=== PATIENT | female | born 1990 | race Caucasian/White ===

== ENCOUNTER 2016-02-24 03:38 | Emergency (ER) | payer OTHER ==
[~2016-02-24] VITALS: Ht 157.5 cm; Wt 94.1 kg
[~2016-02-24 03:38] MED LIST: ACETAMINOPHEN500 MG PO; ADVIL200 MG PO; ALEVE220 M2 PO; ATARAX,VISTARIL25 MG PO; ATIVAN0.5 MG PO; ATIVAN1 MG PO; BACLOFEN10 MG PO; BACTRIM,SEPT1 TABLET PO; BUSPAR10 MG PO; CATAPRES0.1 MG PO; CIPRO500 MG PO; CLEOCIN300 MG; CLEOCIN300 MG PO; CYMBALTA20 MG PO; CYMBALTA30 MG PO; DILAUDID2 MG PO; DOXYCYCLINE HY100 MG; HYDROCODON-ACE1 EAC7 PO; IBUPROFEN200 M1 PO; IBUPROFEN800 MG; LIBRIUM25 MG PO; LIDOCAINE20 MG/1 M5 PO; LORAZEPAM0.5 MG; LORAZEPAM0.5 MG PO; LORAZEPAM1 MG PO; MACROBID100 MG PO; MOTRIN400 MG PO; MOTRIN600 MG PO; MOTRIN800 MG PO; NAPROSYN500 MG PO; NEXIUM20 MG PO; NICODERM CQ1 EAC1 TD; OMEPRAZOLE40 M1 PO; PEN-VEE K,VEET500 MG PO; PERCOCET 5/31 TABLET PO; SERTRALINE HCL50 MG; SERTRALINE HCL50 MG PO; TRAMADOL HCL50 MG PO; TRAZODONE HCL50 MG PO; ULTRAM50 MG PO; VENTOLIN HFA18 GM IH; ZOFRAN4 MG PO; ZOLOFT PO
[2016-02-24 03:46] VITALS: BP 145/92
== END 2016-02-24 05:05 | disposition left against medical advice (07) ==
LOC: EME 03:38
DX: R10.9 Unspecified abdominal pain (principal); Z53.21 Procedure and treatment not carried out due to patient leaving prior to being seen by health care provider; R11.2 Nausea with vomiting, unspecified; J45.909 Unspecified asthma, uncomplicated; I10 Essential (primary) hypertension; Z87.442 Personal history of urinary calculi
CPT/HCPCS: 80053; 81003; 83690; 84702; 85027

== ENCOUNTER 2016-06-15 23:45 | Emergency (ER) | payer OTHER ==
[~2016-06-15] VITALS: Ht 157.5 cm; Wt 96.7 kg
[2016-06-16 00:23] LABS: BILIRUBIN NEGATIVE; BLOOD NEGATIVE; COLOR YELLOW ((YELLOW)); GLUCOSE (STRIP) NEGATIVE; KETONES NEGATIVE; LEUKOCYTES NEGATIVE; NITRITE NEGATIVE; PROTEIN (STRIP) NEGATIVE; SPECIFIC GRAVITY 1.017 (1.000-1.030); UROBILINOGEN 0.2 MG/DL (0.2-1.0)
[2016-06-16 00:26] LABS: ADD MIUA? NO; UCUL ADDED? NO
[2016-06-16 00:33] LABS: HEMATOCRIT 42.3 % (36.0-46.0); MCH 28.3 PG (29.0-34.0); MCHC 33.6 G/DL (30.0-36.0); MCV 84.4 FL (83-99); MEAN PLAT.VOLUME 9.3 uM^3 (9.5-12.4); PLATELET COUNT 530 K/uL (156-360); RBC DIS.WIDTH-CV 13.7 % (11.8-14.6); RBC DIS.WIDTH-SD 42.1 % (39-53); RED BLOOD COUNT 5.01 M/uL (3.80-5.20); WHITE BLOOD COUNT 12.3 K/uL (4.1-10.2)
[2016-06-16 00:43] LABS: CHLORIDE 106 mEq/L (99-109); SODIUM 140 mEq/L (136-147)
[2016-06-16 00:45] LABS: GLUCOSE 118 mg/dL (70-99)
[2016-06-16 00:47] LABS: ANION GAP 14 MEQ/L (2-14); TOTAL BILIRUBIN 0.3 mg/dL (0.0-1.0)
[2016-06-16 00:49] LABS: ALKALINE PHOSPHATASE 99 IU/L (3-129); GFR ESTIMATE (CALCULATED) 57 mL/min/
[2016-06-16 00:50] LABS: UREA NITROGEN (BUN) 12 mg/dL (9-23)
[2016-06-16 00:52] LABS: LIPASE 54 U/L (1.0-51.0)
[2016-06-16 01:00] LABS: QUANTITATIVE HCG < 4.0 MIU/ML
[2016-06-16 03:06] LABS: D-DIMER ELISA 0.64 mg/L FEU (< 0.57)
[2016-06-16] MEDS ORDERED: CARAFATE100 MG/ML PO (04:39)
[2016-06-16] MEDS ORDERED: ZOFRAN4 MG PO (04:39)
[2016-06-16 04:54] VITALS: BP 143/92
[2016-06-16] MEDS ORDERED: BENTYL20 MG PO (11:48)
[2016-06-16] MEDS ORDERED: PREDNISONE50 MG PO (11:48)
== END 2016-06-16 04:55 | disposition home or self-care (01) ==
LOC: EME 23:45
DX: R10.11 Right upper quadrant pain (principal); R11.0 Nausea; I10 Essential (primary) hypertension; J45.909 Unspecified asthma, uncomplicated; F32.9 Major depressive disorder, single episode, unspecified; R56.9 Unspecified convulsions; F41.9 Anxiety disorder, unspecified; Z87.442 Personal history of urinary calculi; F17.200 Nicotine dependence, unspecified, uncomplicated
CPT/HCPCS: 71275; 74177; 76705; 80053; 81003; 83690; 84702; 85027; 85379; 99281; 99285; J1200; J1885; J2270; J2405; J2930; J7030

== ENCOUNTER 2016-06-16 09:20 | Emergency (ER) | payer OTHER ==
[~2016-06-16] VITALS: Ht 157.5 cm; Wt 96.9 kg
[~2016-06-16 09:20] MED LIST changes: +CARAFATE100 MG/ML PO
[2016-06-16 10:16] LABS: EOSINOPHIL (%) 0.1 % (0-5); HEMATOCRIT 43.3 % (36.0-46.0); IMMATURE GRANULOCYTE (%) 0.4 % (0.0-0.7); IMMATURE GRANULOCYTE COUNT 0.1 K/uL; INSTRUMENT ABS NEUTROPHIL CT 13.9 K/uL; LYMPHOCYTE COUNT 0.9 K/uL (1.0-2.8); MCH 28.3 PG (29.0-34.0); MCHC 33.3 G/DL (30.0-36.0); MCV 85.1 FL (83-99); MEAN PLAT.VOLUME 9.4 uM^3 (9.5-12.4); MONOCYTE (%) 5.1 % (3-12); MONOCYTE COUNT 0.8 K/uL (0-0.8); NEUTROPHIL (%) 88.5 % (45-76); NEUTROPHIL COUNT 13.9 K/uL (1.8-6.4); PLATELET COUNT 504 K/uL (156-360); RBC DIS.WIDTH-CV 13.5 % (11.8-14.6); RBC DIS.WIDTH-SD 42.5 % (39-53); RED BLOOD COUNT 5.09 M/uL (3.80-5.20); WHITE BLOOD COUNT 15.8 K/uL (4.1-10.2)
[2016-06-16 10:26] LABS: CHLORIDE 107 mEq/L (99-109); POTASSIUM 4.5 mEq/L (3.7-5.4); SODIUM 138 mEq/L (136-147)
[2016-06-16 10:29] LABS: GLUCOSE 124 mg/dL (70-99)
[2016-06-16 10:30] LABS: ANION GAP 13 MEQ/L (2-14)
[2016-06-16 10:32] LABS: ALKALINE PHOSPHATASE 93 IU/L (3-129); GFR ESTIMATE (CALCULATED) > 59 mL/min/; TOTAL BILIRUBIN 0.6 mg/dL (0.0-1.0)
[2016-06-16 10:33] LABS: UREA NITROGEN (BUN) 16 mg/dL (9-23)
[2016-06-16 10:36] LABS: LIPASE 33 U/L (1.0-51.0)
[2016-06-16] MEDS ORDERED: BENTYL20 MG PO (11:48)
[2016-06-16] MEDS ORDERED: PREDNISONE50 MG PO (11:48)
[2016-06-16 12:27] VITALS: BP 143/87
== END 2016-06-16 12:29 | disposition home or self-care (01) ==
LOC: EME 09:20
PROVIDERS: Emergency Medicine
DX: R10.11 Right upper quadrant pain (principal); R21 Rash and other nonspecific skin eruption; T50.8X5A Adverse effect of diagnostic agents, initial encounter; D72.829 Elevated white blood cell count, unspecified; I10 Essential (primary) hypertension; F17.200 Nicotine dependence, unspecified, uncomplicated; Z87.442 Personal history of urinary calculi; Z91.041 Radiographic dye allergy status
CPT/HCPCS: 80053; 83690; 85025; 99281; 99285; J1885; J2405; J2930; J7030

== ENCOUNTER 2016-07-16 02:26 | Inpatient (IN) | payer OTHER ==
[~2016-07-16] VITALS: Ht 157.5 cm; Wt 96.5 kg
[~2016-07-16 02:26] MED LIST changes: +BENTYL20 MG PO; +PREDNISONE50 MG PO
[2016-07-16 02:58] LABS: HEMATOCRIT 42.5 % (36.0-46.0); MCH 28.2 PG (29.0-34.0); MCHC 33.4 G/DL (30.0-36.0); MCV 84.5 FL (83-99); MEAN PLAT.VOLUME 9.2 uM^3 (9.5-12.4); PLATELET COUNT 449 K/uL (156-360); RBC DIS.WIDTH-CV 13.5 % (11.8-14.6); RBC DIS.WIDTH-SD 41.6 % (39-53); RED BLOOD COUNT 5.03 M/uL (3.80-5.20); WHITE BLOOD COUNT 12.2 K/uL (4.1-10.2)
[2016-07-16 03:09] LABS: CHLORIDE 107 mEq/L (99-109); POTASSIUM 3.3 mEq/L (3.7-5.4); SODIUM 146 mEq/L (136-147)
[2016-07-16 03:11] LABS: GLUCOSE 107 mg/dL (70-99)
[2016-07-16 03:12] LABS: ANION GAP 15 MEQ/L (2-14)
[2016-07-16 03:14] LABS: SERUM ETHYL ALCOHOL 179 mg/dL
[2016-07-16 03:15] LABS: GFR ESTIMATE (CALCULATED) > 59 mL/min/
[2016-07-16 03:16] LABS: UREA NITROGEN (BUN) 8 mg/dL (9-23)
[2016-07-16 03:18] LABS: SALICYLATE < 5.0 MG/DL (15-30)
[2016-07-16 03:23] LABS: QUANTITATIVE HCG < 4.0 MIU/ML
[2016-07-16 07:57] LABS: MCH 28.4 PG (29.0-34.0); MCHC 33.1 G/DL (30.0-36.0); MCV 85.6 FL (83-99); MEAN PLAT.VOLUME 9.7 uM^3 (9.5-12.4); PLATELET COUNT 402 K/uL (156-360); RBC DIS.WIDTH-CV 13.6 % (11.8-14.6); RBC DIS.WIDTH-SD 42.4 % (39-53); RED BLOOD COUNT 4.09 M/uL (3.80-5.20); WHITE BLOOD COUNT 15.7 K/uL (4.1-10.2)
[2016-07-16 09:27] LABS: ADD MIUA? YES; BILIRUBIN NEGATIVE; BLOOD NEGATIVE; COLOR YELLOW ((YELLOW)); GLUCOSE (STRIP) NEGATIVE; KETONES 20; LEUKOCYTES SMALL; NITRITE NEGATIVE; PROTEIN (STRIP) NEGATIVE; UROBILINOGEN 0.2 MG/DL (0.2-1.0)
[2016-07-16 09:33] LABS: BACTERIA NONE SEEN /HPF; EPITHELIAL CELLS RARE /HPF; MUCUS TRACE /LPF; UCUL ADDED? NO; WHITE BLOOD CELLS 0-5 /HPF (0-5)
[2016-07-16 09:35] LABS: AMPHETAMINE NEGATIVE (500 ng/mL); BARBITURATES NEGATIVE (200 ng/mL); BENZODIAZEPINES PRESUMPTIVE POSITIVE (150 ng/mL); COCAINE PRESUMPTIVE POSITIVE (150 ng/mL); INTERNAL CONTROLS VALID? YES; METHADONE NEGATIVE (200 ng/mL); METHAMPHETAMINE NEGATIVE (500 ng/mL); OPIATES (MORPHINE) PRESUMPTIVE POSITIVE (100 ng/mL); OXYCODONE NEGATIVE (100 ng/mL); PHENCYCLIDINE NEGATIVE (25 ng/mL); PROPOXYPHENE NEGATIVE (300 ng/mL); THC CANNABINOIDS NEGATIVE (50 ng/mL); TRICYCLIC ANTIDEPRESSANTS NEGATIVE (300 ng/mL)
[2016-07-16 09:36] LABS: ADD MEDTOX COMMENT Y
[2016-07-16 09:42] LABS: SPECIFIC GRAVITY 1.076 (1.000-1.030)
[2016-07-16 11:00] LABS: BENZODIAZEPINES QUANT VALUE 0 NG/ML; BENZODIAZEPINES, URINE SCREEN Negative (200 ng/mL)
[2016-07-16] MEDS ORDERED: DESYREL100 MG PO (11:27)
[2016-07-16] MEDS ORDERED: OMEPRAZOLE40 M1 PO (11:28)
[2016-07-16] MEDS ORDERED: PAXIL20 MG PO (11:28)
[2016-07-16] MEDS ORDERED: TOPROL XL25 MG PO (11:29)
[2016-07-16] MEDS ORDERED: ADVIL,NUPRIN,M200 MG PO (11:30)
[2016-07-16] MEDS ORDERED: CIPRO500 MG PO (11:32)
[2016-07-16 11:53] VITALS: BP 148/72
[2016-07-16 12:07] VITALS: BP 148/72
[2016-07-16 15:19] VITALS: BP 131/61
[2016-07-17 07:44] VITALS: BP 134/68
[2016-07-17 15:45] VITALS: BP 117/55
[2016-07-18 07:58] VITALS: BP 127/60
[2016-07-18 16:00] VITALS: BP 106/50
[2016-07-19 07:36] VITALS: BP 98/57
[2016-07-19 15:15] VITALS: BP 105/51
[2016-07-20 07:43] VITALS: BP 118/58
[2016-07-20 15:46] VITALS: BP 113/49
[2016-07-21 07:37] VITALS: BP 114/58
[2016-07-21 14:58] VITALS: BP 109/52
[2016-07-22 07:22] VITALS: BP 105/54
[2016-07-22 15:29] VITALS: BP 115/66
[2016-07-23 07:34] VITALS: BP 116/70
[2016-07-23 15:42] VITALS: BP 122/59
[2016-07-24 07:25] VITALS: BP 111/58
[2016-07-24 15:28] VITALS: BP 114/55
[2016-07-25 07:39] VITALS: BP 112/67
[2016-07-25] MEDS ORDERED: VENLAFAXINE HC150 M1 PO (09:22)
[2016-07-25] MEDS ORDERED: QUETIAPINE FUM100 MG PO (09:22)
== END 2016-07-25 11:19 | disposition home or self-care (01) | DRG 876 ==
LOC: EME → TRA 02:26 → EME 02:26 → EDOF 09:01 → 1WEST 09:01 → EDOF 11:22 → 1WEST 11:24
PROVIDERS: Emergency Medicine
DX: F32.2 Major depressive disorder, single episode, severe without psychotic features (principal); S15.8XXA Injury of other specified blood vessels at neck level, initial encounter; I10 Essential (primary) hypertension; F14.10 Cocaine abuse, uncomplicated; S11.81XA Laceration without foreign body of other specified part of neck, initial encounter; F41.0 Panic disorder [episodic paroxysmal anxiety]; F15.10 Other stimulant abuse, uncomplicated; X78.8XXA Intentional self-harm by other sharp object, initial encounter; Y92.9 Unspecified place or not applicable; F10.229 Alcohol dependence with intoxication, unspecified; Y90.6 Blood alcohol level of 120-199 mg/100 ml; Z87.442 Personal history of urinary calculi; J45.909 Unspecified asthma, uncomplicated; F17.210 Nicotine dependence, cigarettes, uncomplicated; R45.6 Violent behavior; K59.00 Constipation, unspecified; T42.4X2A Poisoning by benzodiazepines, intentional self-harm, initial encounter
CPT/HCPCS: 70498; 80048; 81003; 84702; 84999; 85027; 86900; 86901; 90837; 94640; 94640 76; 94760; 97150 GO; 97165 GO; 97530 GO; 99202; 99281; 99285; G0480; J0690; J1200; J2060; J2270; J2405; J2765; J2930; J3010; J7030

== ENCOUNTER 2016-08-20 03:09 | Inpatient (IN) | payer OTHER ==
[~2016-08-20] VITALS: Ht 157.5 cm; Wt 97.0 kg
[~2016-08-20 03:09] MED LIST changes: +ADVIL,NUPRIN,M200 MG PO; +DESYREL100 MG PO; +PAXIL20 MG PO; +QUETIAPINE FUM100 MG PO; +TOPROL XL25 MG PO; +VENLAFAXINE HC150 M1 PO
[2016-08-20 04:00] LABS: ADD MIUA? YES; BILIRUBIN NEGATIVE; BLOOD NEGATIVE; COLOR YELLOW ((YELLOW)); GLUCOSE (STRIP) NEGATIVE; KETONES NEGATIVE; LEUKOCYTES LARGE; NITRITE NEGATIVE; PROTEIN (STRIP) NEGATIVE; SPECIFIC GRAVITY 1.008 (1.000-1.030); UROBILINOGEN 0.2 MG/DL (0.2-1.0)
[2016-08-20 04:10] LABS: AMPHETAMINE NEGATIVE (500 ng/mL); BARBITURATES NEGATIVE (200 ng/mL); BENZODIAZEPINES PRESUMPTIVE POSITIVE (150 ng/mL); COCAINE PRESUMPTIVE POSITIVE (150 ng/mL); INTERNAL CONTROLS VALID? YES; METHADONE NEGATIVE (200 ng/mL); METHAMPHETAMINE NEGATIVE (500 ng/mL); OPIATES (MORPHINE) PRESUMPTIVE POSITIVE (100 ng/mL); OXYCODONE NEGATIVE (100 ng/mL); PHENCYCLIDINE NEGATIVE (25 ng/mL); PROPOXYPHENE NEGATIVE (300 ng/mL); THC CANNABINOIDS NEGATIVE (50 ng/mL); TRICYCLIC ANTIDEPRESSANTS PRESUMPTIVE POSITIVE (300 ng/mL)
[2016-08-20 04:11] LABS: ADD MEDTOX COMMENT Y
[2016-08-20 04:19] LABS: EPITHELIAL CELLS 3+ /HPF; RED BLOOD CELLS NONE SEEN /HPF (0-5); WHITE BLOOD CELLS 30-40 /HPF (0-5)
[2016-08-20 04:20] LABS: BACTERIA 2+ /HPF; CASTS NONE SEEN /LPF; CRYSTALS NONE SEEN; MUCUS NONE SEEN /LPF
[2016-08-20 04:44] LABS: HEMATOCRIT 30.3 % (36.0-46.0); MCV 78.1 FL (83-99); MEAN PLAT.VOLUME 8.5 uM^3 (9.5-12.4); PLATELET COUNT 583 K/uL (156-360); RBC DIS.WIDTH-SD 42.3 % (39-53); RED BLOOD COUNT 3.88 M/uL (3.80-5.20); WHITE BLOOD COUNT 11.7 K/uL (4.1-10.2)
[2016-08-20 04:56] LABS: CHLORIDE 108 mEq/L (99-109); POTASSIUM 3.8 mEq/L (3.7-5.4); SODIUM 144 mEq/L (136-147)
[2016-08-20 04:58] LABS: GLUCOSE 147 mg/dL (70-99)
[2016-08-20 04:59] LABS: ANION GAP 12 MEQ/L (2-14)
[2016-08-20 05:00] LABS: TOTAL BILIRUBIN 0.2 mg/dL (0.0-1.0)
[2016-08-20 05:01] LABS: SERUM ETHYL ALCOHOL 173 mg/dL
[2016-08-20 05:02] LABS: ALKALINE PHOSPHATASE 104 IU/L (3-129); GFR ESTIMATE (CALCULATED) > 59 mL/min/
[2016-08-20 05:03] LABS: UREA NITROGEN (BUN) 7 mg/dL (9-23)
[2016-08-20 05:09] LABS: BENZODIAZEPINES QUANT VALUE 0 NG/ML; BENZODIAZEPINES, URINE SCREEN Negative (200 ng/mL); OPIATES QUANTITATIVE VALUE 0 NG/ML
[2016-08-20 05:11] LABS: QUANTITATIVE HCG < 4.0 MIU/ML
[2016-08-20 10:54] VITALS: BP 127/83
[2016-08-20 11:03] VITALS: BP 127/83
[2016-08-20] MEDS ORDERED: SEROQUEL200 MG PO (11:25)
[2016-08-20 16:02] VITALS: BP 119/77
[2016-08-21 07:18] VITALS: BP 109/70
[2016-08-21 15:48] VITALS: BP 116/58
[2016-08-22 07:30] VITALS: BP 142/82
[2016-08-22 15:11] VITALS: BP 131/72
[2016-08-23 07:29] VITALS: BP 132/61
[2016-08-23 15:46] VITALS: BP 135/60
[2016-08-24 07:26] VITALS: BP 125/60
[2016-08-24] MEDS ORDERED: QUETIAPINE FUM300 MG PO (11:18)
[2016-08-24] MEDS ORDERED: ACAMPROSATE CA333 MG PO (11:19)
== END 2016-08-24 13:19 | disposition home or self-care (01) | DRG 885 ==
LOC: EME → EDBD 03:09 → EME 03:09 → EDOF 09:42 → 1WEST 09:42 → EDOF 09:58 → 1WEST 10:46
PROVIDERS: Emergency Medicine
DX: F33.2 Major depressive disorder, recurrent severe without psychotic features (principal); R45.851 Suicidal ideations; R44.0 Auditory hallucinations; S51.812A Laceration without foreign body of left forearm, initial encounter; Y90.6 Blood alcohol level of 120-199 mg/100 ml; X78.8XXA Intentional self-harm by other sharp object, initial encounter; F17.210 Nicotine dependence, cigarettes, uncomplicated; G40.909 Epilepsy, unspecified, not intractable, without status epilepticus; F41.0 Panic disorder [episodic paroxysmal anxiety]; I10 Essential (primary) hypertension; J45.909 Unspecified asthma, uncomplicated; F11.10 Opioid abuse, uncomplicated; F13.10 Sedative, hypnotic or anxiolytic abuse, uncomplicated; R45.1 Restlessness and agitation; F14.10 Cocaine abuse, uncomplicated; Z91.041 Radiographic dye allergy status; Z78.1 Physical restraint status; Z91.5 Personal history of self-harm; Z87.442 Personal history of urinary calculi; Z56.0 Unemployment, unspecified; Y92.9 Unspecified place or not applicable; Z81.1 Family history of alcohol abuse and dependence
CPT/HCPCS: 80053; 81003; 84702; 84999; 85027; 90837; 97150 GO; 97165 GO; 99202; 99281; 99285; G0480; J1630

== ENCOUNTER 2016-09-07 23:05 | Emergency (ER) | payer OTHER ==
[~2016-09-07] VITALS: Ht 157.5 cm; Wt 100.5 kg
[~2016-09-07 23:05] MED LIST changes: +ACAMPROSATE CA333 MG PO; +QUETIAPINE FUM300 MG PO; +SEROQUEL200 MG PO
[2016-09-07 23:47] LABS: HEMATOCRIT 34.8 % (36.0-46.0); MCH 23.6 PG (29.0-34.0); MCHC 30.7 G/DL (30.0-36.0); MCV 76.8 FL (83-99); MEAN PLAT.VOLUME 8.8 uM^3 (9.5-12.4); PLATELET COUNT 586 K/uL (156-360); RBC DIS.WIDTH-CV 16.8 % (11.8-14.6); RED BLOOD COUNT 4.53 M/uL (3.80-5.20); WHITE BLOOD COUNT 13.9 K/uL (4.1-10.2)
[2016-09-07 23:58] LABS: CHLORIDE 107 mEq/L (99-109); POTASSIUM 3.3 mEq/L (3.7-5.4); SODIUM 143 mEq/L (136-147)
[2016-09-07 23:59] LABS: GLUCOSE 113 mg/dL (70-99)
[2016-09-08 00:01] LABS: ANION GAP 15 MEQ/L (2-14)
[2016-09-08 00:04] LABS: GFR ESTIMATE (CALCULATED) > 59 mL/min/; UREA NITROGEN (BUN) 9 mg/dL (9-23)
[2016-09-08 00:07] LABS: ADD MIUA? YES; BILIRUBIN NEGATIVE; BLOOD LARGE; COLOR STRAW ((YELLOW)); GLUCOSE (STRIP) NEGATIVE; KETONES NEGATIVE; LEUKOCYTES NEGATIVE; NITRITE NEGATIVE; PROTEIN (STRIP) NEGATIVE; SPECIFIC GRAVITY 1.003 (1.000-1.030); UROBILINOGEN 0.2 MG/DL (0.2-1.0)
[2016-09-08 00:14] LABS: QUANTITATIVE HCG < 4.0 MIU/ML
[2016-09-08 00:22] LABS: BACTERIA RARE /HPF; EPITHELIAL CELLS RARE /HPF; MUCUS TRACE /LPF; RED BLOOD CELLS 0-5 /HPF (0-5); UCUL ADDED? NO; WHITE BLOOD CELLS 0-5 /HPF (0-5)
[2016-09-08] MEDS ORDERED: ZOFRAN8 MG PO (03:39)
[2016-09-08] MEDS ORDERED: NORCO 5/3251 TABLET PO (03:39)
[2016-09-08 03:55] VITALS: BP 139/87
== END 2016-09-08 03:59 | disposition home or self-care (01) ==
LOC: EXP 23:05 → EME 23:05 → EXP 09-08 03:59
DX: N23 Unspecified renal colic (principal); R31.9 Hematuria, unspecified; E87.6 Hypokalemia; R30.0 Dysuria; R11.0 Nausea; R00.0 Tachycardia, unspecified; Z87.442 Personal history of urinary calculi; I10 Essential (primary) hypertension; J45.909 Unspecified asthma, uncomplicated; F17.200 Nicotine dependence, unspecified, uncomplicated
CPT/HCPCS: 74176; 80048; 81003; 84702; 85027; 99281; 99283

== ENCOUNTER 2016-09-10 00:11 | Inpatient (IN) | payer OTHER ==
[~2016-09-10] VITALS: Ht 157.5 cm; Wt 101.7 kg
[~2016-09-10 00:11] MED LIST changes: +NORCO 5/3251 TABLET PO; +ZOFRAN8 MG PO
[2016-09-10 01:28] LABS: EOSINOPHIL (%) 3.8 % (0-5); EOSINOPHIL COUNT 0.3 K/uL (0-0.3); HEMATOCRIT 31.9 % (36.0-46.0); IMMATURE GRANULOCYTE (%) 0.6 % (0.0-0.7); IMMATURE GRANULOCYTE COUNT 0.1 K/uL; INSTRUMENT ABS NEUTROPHIL CT 4.5 K/uL; LYMPHOCYTE COUNT 3.4 K/uL (1.0-2.8); MCH 23.4 PG (29.0-34.0); MCHC 30.4 G/DL (30.0-36.0); MCV 76.9 FL (83-99); MEAN PLAT.VOLUME 9.2 uM^3 (9.5-12.4); MONOCYTE COUNT 0.5 K/uL (0-0.8); NEUTROPHIL (%) 50.5 % (45-76); NEUTROPHIL COUNT 4.5 K/uL (1.8-6.4); PLATELET COUNT 522 K/uL (156-360); RBC DIS.WIDTH-CV 16.7 % (11.8-14.6); RBC DIS.WIDTH-SD 46.6 % (39-53); RED BLOOD COUNT 4.15 M/uL (3.80-5.20); WHITE BLOOD COUNT 8.9 K/uL (4.1-10.2)
[2016-09-10 01:29] LABS: CHLORIDE 105 mEq/L (99-109)
[2016-09-10 01:30] LABS: POTASSIUM 3.5 mEq/L (3.7-5.4); SODIUM 142 mEq/L (136-147)
[2016-09-10 01:31] LABS: GLUCOSE 108 mg/dL (70-99)
[2016-09-10 01:33] LABS: ANION GAP 13 MEQ/L (2-14)
[2016-09-10 01:34] LABS: SERUM ETHYL ALCOHOL 77 mg/dL
[2016-09-10 01:35] LABS: GFR ESTIMATE (CALCULATED) > 59 mL/min/
[2016-09-10 01:37] LABS: UREA NITROGEN (BUN) 8 mg/dL (9-23)
[2016-09-10 01:38] LABS: SALICYLATE < 5.0 MG/DL (15-30)
[2016-09-10 04:56] VITALS: BP 139/78
[2016-09-10] MEDS ORDERED: CLONAZEPAM1 MG PO (05:12)
[2016-09-10 07:23] VITALS: BP 152/76
[2016-09-10] MEDS ORDERED: PRAZOSIN HCL1 MG PO (07:35)
[2016-09-10] MEDS ORDERED: KLONOPIN0.5 M1 PO (07:36)
[2016-09-10] MEDS ORDERED: BUSPAR15 MG PO (07:37)
[2016-09-10] MEDS ORDERED: REMERON30 M2 PO (07:37)
[2016-09-10 11:42] VITALS: BP 101/51
[2016-09-10 12:29] LABS: INTERNAL CONTROL VALID? YES
[2016-09-10 12:32] LABS: AMPHETAMINE NEGATIVE (500 ng/mL); BARBITURATES NEGATIVE (200 ng/mL); BENZODIAZEPINES PRESUMPTIVE POSITIVE (150 ng/mL); COCAINE PRESUMPTIVE POSITIVE (150 ng/mL); INTERNAL CONTROLS VALID? YES; METHADONE NEGATIVE (200 ng/mL); METHAMPHETAMINE NEGATIVE (500 ng/mL); OPIATES (MORPHINE) PRESUMPTIVE POSITIVE (100 ng/mL); OXYCODONE NEGATIVE (100 ng/mL); PHENCYCLIDINE NEGATIVE (25 ng/mL); PROPOXYPHENE NEGATIVE (300 ng/mL); THC CANNABINOIDS NEGATIVE (50 ng/mL); TRICYCLIC ANTIDEPRESSANTS NEGATIVE (300 ng/mL)
[2016-09-10 15:21] VITALS: BP 118/57
[2016-09-11 07:29] VITALS: BP 142/73
[2016-09-11 11:30] VITALS: BP 141/82
[2016-09-11 15:30] VITALS: BP 135/74
[2016-09-12 07:34] VITALS: BP 136/78
[2016-09-12] MEDS ORDERED: BUSPAR15 MG PO (10:06)
[2016-09-12] MEDS ORDERED: HALDOL5 MG PO (10:06)
[2016-09-12] MEDS ORDERED: HALDOL2 MG PO (10:06)
== END 2016-09-12 12:30 | disposition home or self-care (01) | DRG 881 ==
LOC: EME 00:11 → 1WEST 03:26 → EDOF 03:26 → 1WEST 04:42
PROVIDERS: Emergency Medicine
DX: F32.9 Major depressive disorder, single episode, unspecified (principal); F14.20 Cocaine dependence, uncomplicated; F60.3 Borderline personality disorder; F10.94 Alcohol use, unspecified with alcohol-induced mood disorder; F41.0 Panic disorder [episodic paroxysmal anxiety]; E66.9 Obesity, unspecified; R45.851 Suicidal ideations; F12.90 Cannabis use, unspecified, uncomplicated; F17.200 Nicotine dependence, unspecified, uncomplicated; I10 Essential (primary) hypertension; S51.812A Laceration without foreign body of left forearm, initial encounter; S61.519A Laceration without foreign body of unspecified wrist, initial encounter; X78.9XXA Intentional self-harm by unspecified sharp object, initial encounter; Z76.5 Malingerer [conscious simulation]; J45.909 Unspecified asthma, uncomplicated; Z68.41 Body mass index [BMI] 40.0-44.9, adult; Z87.442 Personal history of urinary calculi
CPT/HCPCS: 80048; 84703; 85025; 90837; 94640; 94640 76; 97150 GO; 97165 GO; 99202; 99281; 99285; G0480; J2060; Q0177

== ENCOUNTER 2016-09-21 15:58 | Observation (INO) | payer OTHER ==
[~2016-09-21] VITALS: Ht 157.5 cm; Wt 100.2 kg
[~2016-09-21 15:58] MED LIST changes: +BUSPAR15 MG PO; +CLONAZEPAM1 MG PO; +HALDOL2 MG PO; +HALDOL5 MG PO; +KLONOPIN0.5 M1 PO; +PRAZOSIN HCL1 MG PO; +REMERON30 M2 PO
[2016-09-21 17:13] LABS: HEMATOCRIT 35.3 % (36.0-46.0); MCH 22.7 PG (29.0-34.0); MCHC 30.6 G/DL (30.0-36.0); MCV 74.2 FL (83-99); MEAN PLAT.VOLUME 8.8 uM^3 (9.5-12.4); PLATELET COUNT 743 K/uL (156-360); RBC DIS.WIDTH-CV 16.6 % (11.8-14.6); RBC DIS.WIDTH-SD 44.5 % (39-53); RED BLOOD COUNT 4.76 M/uL (3.80-5.20); WHITE BLOOD COUNT 10.4 K/uL (4.1-10.2)
[2016-09-21 17:18] LABS: CHLORIDE 105 mEq/L (99-109); POTASSIUM 4.1 mEq/L (3.7-5.4); SODIUM 141 mEq/L (136-147)
[2016-09-21 17:20] LABS: GLUCOSE 128 mg/dL (70-99)
[2016-09-21 17:22] LABS: ANION GAP 12 MEQ/L (2-14)
[2016-09-21 17:24] LABS: GFR ESTIMATE (CALCULATED) > 59 mL/min/
[2016-09-21 17:25] LABS: UREA NITROGEN (BUN) 8 mg/dL (9-23)
[2016-09-21 17:26] LABS: CREATINE KINASE 104 IU/L (1-294); TOTAL CK 104 IU/L (1-294)
[2016-09-21 17:31] LABS: TROP-I INTERPRETATION NEGATIVE; TROPONIN-I < 0.01 ng/mL (0.0-0.30)
[2016-09-21 17:32] LABS: QUANTITATIVE HCG < 4.0 MIU/ML
[2016-09-21 17:33] LABS: CK-MB 1.1 ng/mL (0.0-4.9)
[2016-09-21 18:37] LABS: AMPHETAMINE NEGATIVE (500 ng/mL); BARBITURATES NEGATIVE (200 ng/mL); BENZODIAZEPINES PRESUMPTIVE POSITIVE (150 ng/mL); COCAINE PRESUMPTIVE POSITIVE (150 ng/mL); INTERNAL CONTROLS VALID? YES; METHADONE NEGATIVE (200 ng/mL); METHAMPHETAMINE NEGATIVE (500 ng/mL); OPIATES (MORPHINE) NEGATIVE (100 ng/mL); OXYCODONE PRESUMPTIVE POSITIVE (100 ng/mL); PHENCYCLIDINE NEGATIVE (25 ng/mL); PROPOXYPHENE NEGATIVE (300 ng/mL); THC CANNABINOIDS NEGATIVE (50 ng/mL); TRICYCLIC ANTIDEPRESSANTS NEGATIVE (300 ng/mL)
[2016-09-21 18:38] LABS: ADD MEDTOX COMMENT Y
[2016-09-21] MEDS ORDERED: HALDOL2 MG PO (18:54)
[2016-09-21] MEDS ORDERED: SEROQUEL300 MG PO (18:55)
[2016-09-21] MEDS ORDERED: EFFEXOR XR150 MG PO (18:55)
[2016-09-21] MEDS ORDERED: CLONAZEPAM1 MG PO (18:55)
[2016-09-21 19:06] LABS: BENZODIAZEPINES QUANT VALUE 0 NG/ML; BENZODIAZEPINES, URINE SCREEN Negative (200 ng/mL)
[2016-09-21 21:49] VITALS: BP 139/94
[2016-09-21 23:28] VITALS: BP 131/84
[2016-09-22 03:10] LABS: METH RESISTANT S AUREUS PCR NEGATIVE (NEGATIVE)
[2016-09-22 03:15] LABS: PROBE CHECK PASS; SPECIMEN PROCESSING CONTROL PASS
[2016-09-22 04:00] VITALS: BP 140/80
== END 2016-09-22 05:19 | disposition left against medical advice (07) ==
LOC: EME 15:58 → EDOF 19:41 → ENRESERV 19:45 → 5WEST 21:34
PROVIDERS: Emergency Medicine; Hospitalist; Physician Assistant
DX: F19.939 Other psychoactive substance use, unspecified with withdrawal, unspecified (principal); R00.0 Tachycardia, unspecified; E86.0 Dehydration; R25.1 Tremor, unspecified; F14.10 Cocaine abuse, uncomplicated; F10.10 Alcohol abuse, uncomplicated; D47.3 Essential (hemorrhagic) thrombocythemia; F60.3 Borderline personality disorder; J45.909 Unspecified asthma, uncomplicated; I10 Essential (primary) hypertension; F32.9 Major depressive disorder, single episode, unspecified; F17.200 Nicotine dependence, unspecified, uncomplicated; Z81.8 Family history of other mental and behavioral disorders; Z80.3 Family history of malignant neoplasm of breast; Z80.1 Family history of malignant neoplasm of trachea, bronchus and lung; Z91.09 Other allergy status, other than to drugs and biological substances
CPT/HCPCS: 80048; 82550; 82553; 83605; 84484; 84702; 84999; 85027; 87641; 93005; 99281; 99285; G0378; G0480; J1650; J2060; J7030

== ENCOUNTER 2016-09-23 02:50 | Emergency (ER) | payer OTHER ==
[~2016-09-23] VITALS: Ht 165.1 cm; Wt 98.0 kg
[~2016-09-23 02:50] MED LIST changes: +EFFEXOR XR150 MG PO; +SEROQUEL300 MG PO
[2016-09-23 04:40] VITALS: BP 128/78
== END 2016-09-23 04:41 | disposition home or self-care (01) ==
LOC: EME 02:50
DX: S93.401A Sprain of unspecified ligament of right ankle, initial encounter (principal)
CPT/HCPCS: 73610; 99281; 99283

== ENCOUNTER 2016-09-26 17:18 | Emergency (ER) | payer OTHER ==
[~2016-09-26] VITALS: Ht 157.5 cm; Wt 98.5 kg
[2016-09-26 18:37] LABS: HEMATOCRIT 32.3 % (36.0-46.0); MCH 23.2 PG (29.0-34.0); MCHC 31.3 G/DL (30.0-36.0); MCV 74.3 FL (83-99); MEAN PLAT.VOLUME 9.3 uM^3 (9.5-12.4); PLATELET COUNT 646 K/uL (156-360); RBC DIS.WIDTH-SD 45.1 % (39-53); RED BLOOD COUNT 4.35 M/uL (3.80-5.20); WHITE BLOOD COUNT 13.4 K/uL (4.1-10.2)
[2016-09-26 18:39] LABS: CHLORIDE 104 mEq/L (99-109); POTASSIUM 4.1 mEq/L (3.7-5.4); SODIUM 138 mEq/L (136-147)
[2016-09-26 18:40] LABS: MAGNESIUM 2.1 mg/dL (1.3-2.7)
[2016-09-26 18:41] LABS: GLUCOSE 106 mg/dL (70-99)
[2016-09-26 18:42] LABS: ANION GAP 20 MEQ/L (2-14)
[2016-09-26 18:43] LABS: TOTAL BILIRUBIN 0.2 mg/dL (0.0-1.0)
[2016-09-26 18:45] LABS: ALKALINE PHOSPHATASE 137 IU/L (3-129); GFR ESTIMATE (CALCULATED) > 59 mL/min/
[2016-09-26 18:46] LABS: UREA NITROGEN (BUN) 14 mg/dL (9-23)
[2016-09-26 18:55] LABS: QUANTITATIVE HCG < 4.0 MIU/ML
[2016-09-26 19:44] LABS: ADD MIUA? YES; BILIRUBIN NEGATIVE; BLOOD NEGATIVE; COLOR YELLOW ((YELLOW)); GLUCOSE (STRIP) NEGATIVE; KETONES NEGATIVE; LEUKOCYTES SMALL; NITRITE NEGATIVE; PROTEIN (STRIP) 30; SPECIFIC GRAVITY 1.024 (1.000-1.030); UROBILINOGEN 0.2 MG/DL (0.2-1.0)
[2016-09-26 20:00] LABS: AMPHETAMINE NEGATIVE (500 ng/mL); BARBITURATES NEGATIVE (200 ng/mL); BENZODIAZEPINES PRESUMPTIVE POSITIVE (150 ng/mL); COCAINE PRESUMPTIVE POSITIVE (150 ng/mL); INTERNAL CONTROLS VALID? YES; METHADONE NEGATIVE (200 ng/mL); METHAMPHETAMINE NEGATIVE (500 ng/mL); OPIATES (MORPHINE) NEGATIVE (100 ng/mL); OXYCODONE NEGATIVE (100 ng/mL); PHENCYCLIDINE NEGATIVE (25 ng/mL); PROPOXYPHENE NEGATIVE (300 ng/mL); THC CANNABINOIDS NEGATIVE (50 ng/mL); TRICYCLIC ANTIDEPRESSANTS NEGATIVE (300 ng/mL)
[2016-09-26 20:03] LABS: ADD MEDTOX COMMENT Y
[2016-09-26 20:06] LABS: BACTERIA NONE SEEN /HPF; EPITHELIAL CELLS 2+ /HPF; MUCUS 2+ /LPF; RED BLOOD CELLS 0-5 /HPF (0-5); UCUL ADDED? NO; UNCLASSIFIED CRYSTALS 2+ /HPF; WHITE BLOOD CELLS 0-5 /HPF (0-5)
[2016-09-26] MEDS ORDERED: ATIVAN2 MG PO (20:41)
[2016-09-26 20:48] VITALS: BP 122/91
[2016-09-26 21:17] LABS: BENZODIAZEPINES QUANT VALUE 0 NG/ML; BENZODIAZEPINES, URINE SCREEN Negative (200 ng/mL)
== END 2016-09-26 20:49 | disposition home or self-care (01) ==
LOC: EME 17:18 → RME 17:18
PROVIDERS: Physician Assistant
DX: F13.239 Sedative, hypnotic or anxiolytic dependence with withdrawal, unspecified (principal); G25.2 Other specified forms of tremor; R00.0 Tachycardia, unspecified; F14.10 Cocaine abuse, uncomplicated; I10 Essential (primary) hypertension; J45.909 Unspecified asthma, uncomplicated; K21.9 Gastro-esophageal reflux disease without esophagitis; F32.9 Major depressive disorder, single episode, unspecified; F41.9 Anxiety disorder, unspecified; Z86.73 Personal history of transient ischemic attack (TIA), and cerebral infarction without residual deficits
CPT/HCPCS: 80053; 81003; 83735; 84702; 84999; 85027; 99281; 99284; J7030

== ENCOUNTER 2016-09-27 18:33 | Inpatient (IN) | payer OTHER ==
[~2016-09-27] VITALS: Ht 157.5 cm; Wt 96.5 kg
[~2016-09-27 18:33] MED LIST changes: +ATIVAN2 MG PO
[2016-09-27 19:34] LABS: HEMATOCRIT 32.2 % (36.0-46.0); MCH 22.7 PG (29.0-34.0); MCHC 30.7 G/DL (30.0-36.0); MCV 73.9 FL (83-99); MEAN PLAT.VOLUME 9.2 uM^3 (9.5-12.4); PLATELET COUNT 606 K/uL (156-360); RBC DIS.WIDTH-CV 17.1 % (11.8-14.6); RED BLOOD COUNT 4.36 M/uL (3.80-5.20); WHITE BLOOD COUNT 10.6 K/uL (4.1-10.2)
[2016-09-27 19:39] LABS: CHLORIDE 107 mEq/L (99-109); POTASSIUM 3.8 mEq/L (3.7-5.4); SODIUM 141 mEq/L (136-147)
[2016-09-27 19:41] LABS: GLUCOSE 131 mg/dL (70-99)
[2016-09-27 19:42] LABS: ANION GAP 11 MEQ/L (2-14)
[2016-09-27 19:44] LABS: SERUM ETHYL ALCOHOL < 10 mg/dL
[2016-09-27 19:45] LABS: GFR ESTIMATE (CALCULATED) > 59 mL/min/
[2016-09-27 19:46] LABS: UREA NITROGEN (BUN) 13 mg/dL (9-23)
[2016-09-27 19:48] LABS: SALICYLATE < 5.0 MG/DL (15-30)
[2016-09-27 19:54] LABS: QUANTITATIVE HCG < 4.0 MIU/ML
[2016-09-28 06:01] LABS: CREATINE KINASE 173 IU/L (1-294); TOTAL CK 173 IU/L (1-294)
[2016-09-28 06:04] LABS: TROP-I INTERPRETATION NEGATIVE; TROPONIN-I < 0.01 ng/mL (0.0-0.30)
[2016-09-28 06:07] LABS: CK-MB 1.2 ng/mL (0.0-4.9)
[2016-09-28] MEDS ORDERED: BACLOFEN10 MG PO (08:28)
[2016-09-28] MEDS ORDERED: ZOFRAN8 MG PO (08:34)
[2016-09-28] MEDS ORDERED: HYDROCODON-ACE1 EAC7 PO (08:35)
[2016-09-28 09:13] VITALS: BP 149/105
[2016-09-28 09:24] VITALS: BP 149/105
[2016-09-28 09:39] LABS: ADD MEDTOX COMMENT Y; AMPHETAMINE NEGATIVE (500 ng/mL); BARBITURATES NEGATIVE (200 ng/mL); BENZODIAZEPINES NEGATIVE (150 ng/mL); COCAINE PRESUMPTIVE POSITIVE (150 ng/mL); INTERNAL CONTROLS VALID? YES; METHADONE NEGATIVE (200 ng/mL); METHAMPHETAMINE NEGATIVE (500 ng/mL); OPIATES (MORPHINE) NEGATIVE (100 ng/mL); OXYCODONE NEGATIVE (100 ng/mL); PHENCYCLIDINE NEGATIVE (25 ng/mL); PROPOXYPHENE NEGATIVE (300 ng/mL); THC CANNABINOIDS NEGATIVE (50 ng/mL); TRICYCLIC ANTIDEPRESSANTS NEGATIVE (300 ng/mL)
[2016-09-28] MEDS ORDERED: KLONOPIN0.5 M1 PO (10:34)
[2016-09-28 12:25] VITALS: BP 140/90
[2016-09-28 15:40] VITALS: BP 141/91
[2016-09-28 20:58] VITALS: BP 161/104
[2016-09-29 07:48] VITALS: BP 156/93
[2016-09-29 15:40] VITALS: BP 126/76
[2016-09-30 07:52] VITALS: BP 109/59
[2016-09-30 13:16] VITALS: BP 121/77
[2016-09-30 15:27] VITALS: BP 126/79
[2016-10-01 07:46] VITALS: BP 138/64
[2016-10-01 16:13] VITALS: BP 128/82
[2016-10-02 08:55] VITALS: BP 117/71
[2016-10-02 16:39] VITALS: BP 108/60
[2016-10-03 07:49] VITALS: BP 101/60
[2016-10-03] MEDS ORDERED: GABAPENTIN300 MG PO (09:28)
[2016-10-03] MEDS ORDERED: ARIPIPRAZOLE15 MG PO (09:28)
[2016-10-03] MEDS ORDERED: TOPROL XL25 MG PO (09:28)
[2016-10-03] MEDS ORDERED: HYDROCHLOROTH12.5 M3 PO (09:28)
[2016-10-03] MEDS ORDERED: EFFEXOR XR37.5 MG PO ×2 (09:30→09:46)
== END 2016-10-03 10:16 | disposition home or self-care (01) | DRG 885 ==
LOC: EME 18:33 → 1WEST 09-28 06:49 → EDOF 09-28 06:49 → 1WEST 09-28 06:49 → ENRESERV 09-28 08:36 → EDOF 09-28 09:00 → ENRESERVTM 09-28 09:00 → 1WEST 09-28 09:12
PROVIDERS: Emergency Medicine
DX: F33.2 Major depressive disorder, recurrent severe without psychotic features (principal); T42.4X2A Poisoning by benzodiazepines, intentional self-harm, initial encounter; F60.3 Borderline personality disorder; F41.0 Panic disorder [episodic paroxysmal anxiety]; F13.10 Sedative, hypnotic or anxiolytic abuse, uncomplicated; F14.90 Cocaine use, unspecified, uncomplicated; R47.81 Slurred speech; I10 Essential (primary) hypertension; G43.909 Migraine, unspecified, not intractable, without status migrainosus; J45.909 Unspecified asthma, uncomplicated; K21.9 Gastro-esophageal reflux disease without esophagitis; F17.200 Nicotine dependence, unspecified, uncomplicated; Z86.73 Personal history of transient ischemic attack (TIA), and cerebral infarction without residual deficits; Z87.442 Personal history of urinary calculi
CPT/HCPCS: 80048; 82550; 82553; 84484; 84702; 84999; 85027; 93005; 94640; 97150 GO; 97165 GO; 99202; 99281; 99285; G0480; J1630; J7030

== ENCOUNTER 2016-10-04 20:49 | Emergency (ER) | payer OTHER ==
[~2016-10-04] VITALS: Ht 157.5 cm; Wt 97.5 kg
[~2016-10-04 20:49] MED LIST changes: +ARIPIPRAZOLE15 MG PO; +EFFEXOR XR37.5 MG PO; +GABAPENTIN300 MG PO; +HYDROCHLOROTH12.5 M3 PO
[2016-10-04 21:37] LABS: CHLORIDE 95 mEq/L (99-109); POTASSIUM 2.6 mEq/L (3.7-5.4); SODIUM 139 mEq/L (136-147)
[2016-10-04 21:39] LABS: GLUCOSE 138 mg/dL (70-99)
[2016-10-04 21:41] LABS: ANION GAP 14 MEQ/L (2-14); TOTAL BILIRUBIN 0.2 mg/dL (0.0-1.0)
[2016-10-04 21:43] LABS: ALKALINE PHOSPHATASE 133 IU/L (3-129); GFR ESTIMATE (CALCULATED) > 59 mL/min/; MCH 22.5 PG (29.0-34.0); MCHC 31.1 G/DL (30.0-36.0); MCV 72.2 FL (83-99); PLATELET COUNT 657 K/uL (156-360); RBC DIS.WIDTH-CV 16.6 % (11.8-14.6); RBC DIS.WIDTH-SD 42.9 % (39-53); RED BLOOD COUNT 4.85 M/uL (3.80-5.20); WHITE BLOOD COUNT 10.2 K/uL (4.1-10.2)
[2016-10-04 21:44] LABS: UREA NITROGEN (BUN) 7 mg/dL (9-23)
[2016-10-04 21:53] LABS: QUANTITATIVE HCG < 4.0 MIU/ML
[2016-10-04 22:48] LABS: LIPASE 28 U/L (1.0-51.0)
[2016-10-04 22:52] LABS: ADD MIUA? YES; BILIRUBIN NEGATIVE; BLOOD NEGATIVE; COLOR YELLOW ((YELLOW)); GLUCOSE (STRIP) NEGATIVE; KETONES NEGATIVE; LEUKOCYTES NEGATIVE; NITRITE NEGATIVE; PROTEIN (STRIP) NEGATIVE; SPECIFIC GRAVITY 1.013 (1.000-1.030); UROBILINOGEN 0.2 MG/DL (0.2-1.0)
[2016-10-04 22:55] LABS: BACTERIA RARE /HPF; EPITHELIAL CELLS 1+ /HPF; MUCUS TRACE /LPF; RED BLOOD CELLS 0-5 /HPF (0-5); UCUL ADDED? NO; WHITE BLOOD CELLS 0-5 /HPF (0-5)
[2016-10-05 02:34] VITALS: BP 129/91
== END 2016-10-05 02:35 | disposition home or self-care (01) ==
LOC: EME 20:49
DX: R10.11 Right upper quadrant pain (principal); K59.00 Constipation, unspecified; E87.6 Hypokalemia; I12.9 Hypertensive chronic kidney disease with stage 1 through stage 4 chronic kidney disease, or unspecified chronic kidney disease; N18.9 Chronic kidney disease, unspecified; Z87.442 Personal history of urinary calculi; J45.909 Unspecified asthma, uncomplicated; Z86.73 Personal history of transient ischemic attack (TIA), and cerebral infarction without residual deficits; Z91.041 Radiographic dye allergy status; F17.200 Nicotine dependence, unspecified, uncomplicated
CPT/HCPCS: 74020; 76705; 80053; 81003; 83690; 84702; 85027; 99281; 99284

== ENCOUNTER 2016-10-06 01:19 | Emergency (ER) | payer OTHER ==
[~2016-10-06] VITALS: Ht 157.5 cm; Wt 95.0 kg
[2016-10-06 02:07] LABS: HEMATOCRIT 34.2 % (36.0-46.0); MCH 21.9 PG (29.0-34.0); MCHC 30.4 G/DL (30.0-36.0); MCV 72.2 FL (83-99); MEAN PLAT.VOLUME 8.9 uM^3 (9.5-12.4); PLATELET COUNT 634 K/uL (156-360); RBC DIS.WIDTH-CV 16.5 % (11.8-14.6); RBC DIS.WIDTH-SD 42.8 % (39-53); RED BLOOD COUNT 4.74 M/uL (3.80-5.20)
[2016-10-06 02:19] LABS: CHLORIDE 98 mEq/L (99-109); POTASSIUM 2.8 mEq/L (3.7-5.4); SODIUM 141 mEq/L (136-147)
[2016-10-06 02:22] LABS: ANION GAP 13 MEQ/L (2-14)
[2016-10-06 02:23] LABS: TOTAL BILIRUBIN 0.2 mg/dL (0.0-1.0)
[2016-10-06 02:24] LABS: SERUM ETHYL ALCOHOL 149 mg/dL
[2016-10-06 02:25] LABS: ALKALINE PHOSPHATASE 134 IU/L (3-129); GFR ESTIMATE (CALCULATED) > 59 mL/min/
[2016-10-06 02:26] LABS: GLUCOSE 100 mg/dL (70-99); UREA NITROGEN (BUN) 6 mg/dL (9-23)
[2016-10-06 02:33] LABS: QUANTITATIVE HCG < 4.0 MIU/ML
[2016-10-06 03:50] LABS: ADD MIUA? YES; BILIRUBIN NEGATIVE; BLOOD NEGATIVE; COLOR YELLOW ((YELLOW)); GLUCOSE (STRIP) NEGATIVE; KETONES NEGATIVE; LEUKOCYTES MODERATE; NITRITE NEGATIVE; PROTEIN (STRIP) NEGATIVE; SPECIFIC GRAVITY 1.004 (1.000-1.030); UROBILINOGEN 0.2 MG/DL (0.2-1.0)
[2016-10-06 04:00] LABS: ADD MEDTOX COMMENT Y; AMPHETAMINE NEGATIVE (500 ng/mL); BARBITURATES NEGATIVE (200 ng/mL); BENZODIAZEPINES PRESUMPTIVE POSITIVE (150 ng/mL); COCAINE PRESUMPTIVE POSITIVE (150 ng/mL); INTERNAL CONTROLS VALID? YES; METHADONE NEGATIVE (200 ng/mL); METHAMPHETAMINE NEGATIVE (500 ng/mL); OPIATES (MORPHINE) NEGATIVE (100 ng/mL); OXYCODONE NEGATIVE (100 ng/mL); PHENCYCLIDINE NEGATIVE (25 ng/mL); PROPOXYPHENE NEGATIVE (300 ng/mL); THC CANNABINOIDS NEGATIVE (50 ng/mL); TRICYCLIC ANTIDEPRESSANTS NEGATIVE (300 ng/mL)
[2016-10-06 04:08] LABS: EPITHELIAL CELLS 2+ /HPF; RED BLOOD CELLS 0-5 /HPF (0-5)
[2016-10-06 04:09] LABS: BACTERIA NONE SEEN /HPF; MUCUS NONE SEEN /LPF
[2016-10-06 04:10] LABS: BUDDING YEAST 1+
[2016-10-06 04:30] LABS: BENZODIAZEPINES, URINE SCREEN POSITIVE (200 ng/mL)
[2016-10-06 06:07] VITALS: BP 122/74
== END 2016-10-06 06:08 | disposition home or self-care (01) ==
LOC: EME 01:19
PROVIDERS: Emergency Medicine
DX: F32.9 Major depressive disorder, single episode, unspecified (principal); F10.129 Alcohol abuse with intoxication, unspecified; Y90.6 Blood alcohol level of 120-199 mg/100 ml; I12.9 Hypertensive chronic kidney disease with stage 1 through stage 4 chronic kidney disease, or unspecified chronic kidney disease; N18.9 Chronic kidney disease, unspecified; J45.909 Unspecified asthma, uncomplicated; Z87.442 Personal history of urinary calculi
CPT/HCPCS: 80053; 81003; 84702; 84999; 85027; 87086; 90837; 99281; 99285; G0480; J1630

== ENCOUNTER 2016-10-10 23:14 | Emergency (ER) | payer OTHER ==
[~2016-10-10] VITALS: Ht 157.5 cm; Wt 101.2 kg
[2016-10-11 00:35] LABS: HEMATOCRIT 29.7 % (36.0-46.0); MCH 22.1 PG (29.0-34.0); MCHC 30.3 G/DL (30.0-36.0); MCV 72.8 FL (83-99); MEAN PLAT.VOLUME 8.9 uM^3 (9.5-12.4); PLATELET COUNT 530 K/uL (156-360); RBC DIS.WIDTH-CV 16.6 % (11.8-14.6); RBC DIS.WIDTH-SD 43.5 % (39-53); RED BLOOD COUNT 4.08 M/uL (3.80-5.20); WHITE BLOOD COUNT 9.2 K/uL (4.1-10.2)
[2016-10-11 00:41] LABS: CHLORIDE 107 mEq/L (99-109); POTASSIUM 3.2 mEq/L (3.7-5.4); SODIUM 144 mEq/L (136-147)
[2016-10-11 00:44] LABS: GLUCOSE 132 mg/dL (70-99)
[2016-10-11 00:45] LABS: ANION GAP 11 MEQ/L (2-14)
[2016-10-11 00:46] LABS: TOTAL BILIRUBIN 0.2 mg/dL (0.0-1.0)
[2016-10-11 00:47] LABS: ALKALINE PHOSPHATASE 119 IU/L (3-129); GFR ESTIMATE (CALCULATED) > 59 mL/min/; SERUM ETHYL ALCOHOL < 10 mg/dL
[2016-10-11 00:49] LABS: UREA NITROGEN (BUN) 8 mg/dL (9-23)
[2016-10-11 00:58] LABS: QUANTITATIVE HCG < 4.0 MIU/ML
[2016-10-11 01:30] LABS: ADD MIUA? YES; BILIRUBIN NEGATIVE; BLOOD NEGATIVE; GLUCOSE (STRIP) NEGATIVE; KETONES NEGATIVE; LEUKOCYTES TRACE; NITRITE POSITIVE; PROTEIN (STRIP) 30; SPECIFIC GRAVITY 1.024 (1.000-1.030)
[2016-10-11 01:32] LABS: COLOR YELLOW ((YELLOW))
[2016-10-11 01:40] LABS: BACTERIA 1+ /HPF; CALCIUM OXALATE CRYSTALS 4+ /HPF; EPITHELIAL CELLS 1+ /HPF; MUCUS TRACE /LPF; UCUL ADDED? YES; WHITE BLOOD CELLS 15-20 /HPF (0-5)
[2016-10-11 01:56] LABS: THC CANNABINOIDS NEGATIVE (50 ng/mL)
[2016-10-11 01:57] LABS: ADD MEDTOX COMMENT Y; AMPHETAMINE NEGATIVE (500 ng/mL); BARBITURATES NEGATIVE (200 ng/mL); BENZODIAZEPINES PRESUMPTIVE POSITIVE (150 ng/mL); COCAINE PRESUMPTIVE POSITIVE (150 ng/mL); INTERNAL CONTROLS VALID? YES; METHADONE NEGATIVE (200 ng/mL); METHAMPHETAMINE NEGATIVE (500 ng/mL); OPIATES (MORPHINE) NEGATIVE (100 ng/mL); OXYCODONE NEGATIVE (100 ng/mL); PHENCYCLIDINE NEGATIVE (25 ng/mL); PROPOXYPHENE NEGATIVE (300 ng/mL); TRICYCLIC ANTIDEPRESSANTS NEGATIVE (300 ng/mL)
[2016-10-11] MEDS ORDERED: MACROBID100 MG PO (02:14)
[2016-10-11] MEDS ORDERED: ATARAX,VISTARIL25 MG PO (02:14)
[2016-10-11 02:33] LABS: BENZODIAZEPINES, URINE SCREEN POSITIVE (200 ng/mL)
[2016-10-11 02:53] VITALS: BP 114/64
== END 2016-10-11 02:56 | disposition home or self-care (01) ==
LOC: EME 23:14
PROVIDERS: Physician Assistant
DX: N30.00 Acute cystitis without hematuria (principal); D64.9 Anemia, unspecified; E87.6 Hypokalemia; F19.10 Other psychoactive substance abuse, uncomplicated; Z91.5 Personal history of self-harm; Z91.041 Radiographic dye allergy status
CPT/HCPCS: 80053; 81003; 84702; 84999; 85027; 87086; 99281; 99283; G0480

== ENCOUNTER 2016-10-12 18:31 | Emergency (ER) | payer OTHER ==
[~2016-10-12] VITALS: Ht 157.5 cm; Wt 99.8 kg
[2016-10-12 19:27] LABS: ADD MIUA? YES; BILIRUBIN NEGATIVE; BLOOD NEGATIVE; COLOR YELLOW ((YELLOW)); GLUCOSE (STRIP) NEGATIVE; KETONES 5; LEUKOCYTES MODERATE; NITRITE NEGATIVE; PROTEIN (STRIP) 30; SPECIFIC GRAVITY 1.025 (1.000-1.030)
[2016-10-12 19:33] LABS: CHLORIDE 109 mEq/L (99-109); SODIUM 145 mEq/L (136-147)
[2016-10-12 19:35] LABS: GLUCOSE 131 mg/dL (70-99)
[2016-10-12 19:37] LABS: ANION GAP 12 MEQ/L (2-14); TOTAL BILIRUBIN 0.2 mg/dL (0.0-1.0)
[2016-10-12 19:37] LABS: ADD MEDTOX COMMENT Y; AMPHETAMINE NEGATIVE (500 ng/mL); BARBITURATES NEGATIVE (200 ng/mL); BENZODIAZEPINES PRESUMPTIVE POSITIVE (150 ng/mL); COCAINE PRESUMPTIVE POSITIVE (150 ng/mL); INTERNAL CONTROLS VALID? YES; METHADONE NEGATIVE (200 ng/mL); METHAMPHETAMINE NEGATIVE (500 ng/mL); OPIATES (MORPHINE) NEGATIVE (100 ng/mL); OXYCODONE NEGATIVE (100 ng/mL); PHENCYCLIDINE NEGATIVE (25 ng/mL); PROPOXYPHENE NEGATIVE (300 ng/mL); THC CANNABINOIDS NEGATIVE (50 ng/mL); TRICYCLIC ANTIDEPRESSANTS NEGATIVE (300 ng/mL)
[2016-10-12 19:38] LABS: SERUM ETHYL ALCOHOL < 10 mg/dL
[2016-10-12 19:38] LABS: BACTERIA RARE /HPF; CALCIUM OXALATE CRYSTALS 3+ /HPF; EPITHELIAL CELLS 1+ /HPF; MUCUS 3+ /LPF; RED BLOOD CELLS 0-5 /HPF (0-5); UCUL ADDED? YES
[2016-10-12 19:39] LABS: GFR ESTIMATE (CALCULATED) > 59 mL/min/
[2016-10-12 19:40] LABS: ALKALINE PHOSPHATASE 113 IU/L (3-129)
[2016-10-12 19:41] LABS: UREA NITROGEN (BUN) 11 mg/dL (9-23)
[2016-10-12 19:42] LABS: SALICYLATE < 5.0 MG/DL (15-30)
[2016-10-12 19:43] LABS: CREATINE KINASE 374 IU/L (1-294); TOTAL CK 374 IU/L (1-294)
[2016-10-12 19:48] LABS: EOSINOPHIL (%) 1.4 % (0-5); EOSINOPHIL COUNT 0.2 K/uL (0-0.3); HEMATOCRIT 30.4 % (36.0-46.0); IMMATURE GRANULOCYTE (%) 0.5 % (0.0-0.7); IMMATURE GRANULOCYTE COUNT 0.1 K/uL; INSTRUMENT ABS NEUTROPHIL CT 6.7 K/uL; LYMPHOCYTE COUNT 3.4 K/uL (1.0-2.8); MCHC 30.3 G/DL (30.0-36.0); MCV 72.6 FL (83-99); MEAN PLAT.VOLUME 9.2 uM^3 (9.5-12.4); MONOCYTE (%) 6.8 % (3-12); MONOCYTE COUNT 0.8 K/uL (0-0.8); NEUTROPHIL (%) 60.1 % (45-76); NEUTROPHIL COUNT 6.7 K/uL (1.8-6.4); PLATELET COUNT 550 K/uL (156-360); RBC DIS.WIDTH-CV 16.8 % (11.8-14.6); RBC DIS.WIDTH-SD 44.1 % (39-53); RED BLOOD COUNT 4.19 M/uL (3.80-5.20); WHITE BLOOD COUNT 11.1 K/uL (4.1-10.2)
[2016-10-12 19:49] LABS: QUANTITATIVE HCG < 4.0 MIU/ML
[2016-10-12 19:50] LABS: CK-MB 1.6 ng/mL (0.0-4.9)
[2016-10-12 20:20] LABS: BENZODIAZEPINES, URINE SCREEN POSITIVE (200 ng/mL)
[2016-10-12 20:53] VITALS: BP 117/85
== END 2016-10-12 20:54 | disposition home or self-care (01) ==
LOC: EME 18:31
PROVIDERS: Emergency Medicine
DX: F41.9 Anxiety disorder, unspecified (principal); F19.10 Other psychoactive substance abuse, uncomplicated; E87.6 Hypokalemia; F14.10 Cocaine abuse, uncomplicated; F33.2 Major depressive disorder, recurrent severe without psychotic features; F10.20 Alcohol dependence, uncomplicated; F60.3 Borderline personality disorder; I12.9 Hypertensive chronic kidney disease with stage 1 through stage 4 chronic kidney disease, or unspecified chronic kidney disease; N18.9 Chronic kidney disease, unspecified; J45.909 Unspecified asthma, uncomplicated; Z86.73 Personal history of transient ischemic attack (TIA), and cerebral infarction without residual deficits; Z87.442 Personal history of urinary calculi; F17.200 Nicotine dependence, unspecified, uncomplicated; Z91.041 Radiographic dye allergy status
CPT/HCPCS: 80053; 81003; 82550; 82553; 84702; 84999; 85025; 87086; 90839; 99281; 99284; G0480

== ENCOUNTER 2016-10-17 20:37 | Emergency (ER) | payer OTHER ==
[~2016-10-17] VITALS: Ht 157.5 cm; Wt 95.7 kg
[2016-10-17] MEDS ORDERED: ULTRACET1 TABLET PO (21:34)
[2016-10-17] MEDS ORDERED: NAPROXEN500 MG PO (21:34)
[2016-10-17 21:52] VITALS: BP 00/00
[2016-10-18] MEDS ORDERED: NAPROSYN500 MG PO (17:19)
== END 2016-10-17 21:53 | disposition home or self-care (01) ==
LOC: EXP 20:37 → EME 20:37 → EXP 21:53
DX: S93.401A Sprain of unspecified ligament of right ankle, initial encounter (principal); X50.1XXA Overexertion from prolonged static or awkward postures, initial encounter; Z91.14 Patient's other noncompliance with medication regimen; Z87.442 Personal history of urinary calculi; K21.9 Gastro-esophageal reflux disease without esophagitis; I12.9 Hypertensive chronic kidney disease with stage 1 through stage 4 chronic kidney disease, or unspecified chronic kidney disease; N18.9 Chronic kidney disease, unspecified; J45.909 Unspecified asthma, uncomplicated; F17.200 Nicotine dependence, unspecified, uncomplicated; Z86.73 Personal history of transient ischemic attack (TIA), and cerebral infarction without residual deficits
CPT/HCPCS: 99281; 99284

== ENCOUNTER 2016-10-18 17:00 | Emergency (ER) | payer OTHER ==
[~2016-10-18] VITALS: Ht 157.5 cm; Wt 99.3 kg
[~2016-10-18 17:00] MED LIST changes: +NAPROXEN500 MG PO; +ULTRACET1 TABLET PO
[2016-10-18] MEDS ORDERED: NAPROSYN500 MG PO (17:19)
[2016-10-18 17:31] VITALS: BP 132/86
== END 2016-10-18 17:31 | disposition home or self-care (01) ==
LOC: EME 17:00
DX: M79.671 Pain in right foot (principal); S93.401D Sprain of unspecified ligament of right ankle, subsequent encounter; Z91.041 Radiographic dye allergy status
CPT/HCPCS: 99281; 99283

== ENCOUNTER 2016-10-27 02:00 | Emergency (ER) | payer OTHER ==
[~2016-10-27] VITALS: Ht 157.5 cm; Wt 93.4 kg
[2016-10-27 03:01] LABS: HEMATOCRIT 38.3 % (36.0-46.0); MCH 21.1 PG (29.0-34.0); MCHC 30.5 G/DL (30.0-36.0); MCV 69.1 FL (83-99); MEAN PLAT.VOLUME 8.9 uM^3 (9.5-12.4); PLATELET COUNT 715 K/uL (156-360); RBC DIS.WIDTH-SD 41.4 % (39-53); RED BLOOD COUNT 5.54 M/uL (3.80-5.20); WHITE BLOOD COUNT 10.9 K/uL (4.1-10.2)
[2016-10-27 03:10] LABS: CHLORIDE 102 mEq/L (99-109); SODIUM 140 mEq/L (136-147)
[2016-10-27 03:12] LABS: GLUCOSE 138 mg/dL (70-99)
[2016-10-27 03:13] LABS: ANION GAP 15 MEQ/L (2-14)
[2016-10-27 03:15] LABS: GFR ESTIMATE (CALCULATED) > 59 mL/min/; SERUM ETHYL ALCOHOL 75 mg/dL
[2016-10-27 03:16] LABS: UREA NITROGEN (BUN) 6 mg/dL (9-23)
[2016-10-27 04:12] LABS: ADD MEDTOX COMMENT Y; AMPHETAMINE NEGATIVE (500 ng/mL); BARBITURATES NEGATIVE (200 ng/mL); BENZODIAZEPINES PRESUMPTIVE POSITIVE (150 ng/mL); COCAINE PRESUMPTIVE POSITIVE (150 ng/mL); INTERNAL CONTROLS VALID? YES; METHADONE NEGATIVE (200 ng/mL); METHAMPHETAMINE NEGATIVE (500 ng/mL); OPIATES (MORPHINE) NEGATIVE (100 ng/mL); OXYCODONE NEGATIVE (100 ng/mL); PHENCYCLIDINE NEGATIVE (25 ng/mL); PROPOXYPHENE NEGATIVE (300 ng/mL); THC CANNABINOIDS NEGATIVE (50 ng/mL); TRICYCLIC ANTIDEPRESSANTS NEGATIVE (300 ng/mL)
[2016-10-27 04:15] VITALS: BP 137/83
[2016-10-27 05:12] LABS: BENZODIAZEPINES, URINE SCREEN POSITIVE (200 ng/mL)
== END 2016-10-27 04:16 | disposition home or self-care (01) ==
LOC: EME 02:00
DX: F41.9 Anxiety disorder, unspecified (principal); F32.9 Major depressive disorder, single episode, unspecified; R45.851 Suicidal ideations; F10.129 Alcohol abuse with intoxication, unspecified; F14.20 Cocaine dependence, uncomplicated; F60.3 Borderline personality disorder; Y90.3 Blood alcohol level of 60-79 mg/100 ml; I12.9 Hypertensive chronic kidney disease with stage 1 through stage 4 chronic kidney disease, or unspecified chronic kidney disease; N18.9 Chronic kidney disease, unspecified; J45.909 Unspecified asthma, uncomplicated; Z86.73 Personal history of transient ischemic attack (TIA), and cerebral infarction without residual deficits; Z87.442 Personal history of urinary calculi; F17.200 Nicotine dependence, unspecified, uncomplicated
CPT/HCPCS: 80048; 84999; 85027; 90839; 99281; 99285; G0480; J1630

== ENCOUNTER 2016-11-03 03:24 | Inpatient (IN) | payer OTHER ==
[~2016-11-03] VITALS: Ht 157.5 cm; Wt 94.3 kg
[2016-11-03 04:23] LABS: EOSINOPHIL (%) 2.7 % (0-5); EOSINOPHIL COUNT 0.2 K/uL (0-0.3); HEMATOCRIT 34.7 % (36.0-46.0); IMMATURE GRANULOCYTE (%) 0.4 % (0.0-0.7); INSTRUMENT ABS NEUTROPHIL CT 4.2 K/uL; LYMPHOCYTE COUNT 3.6 K/uL (1.0-2.8); MCH 20.8 PG (29.0-34.0); MCHC 30.3 G/DL (30.0-36.0); MCV 68.8 FL (83-99); MONOCYTE (%) 3.6 % (3-12); MONOCYTE COUNT 0.3 K/uL (0-0.8); NEUTROPHIL COUNT 4.2 K/uL (1.8-6.4); PLATELET COUNT 563 K/uL (156-360); RBC DIS.WIDTH-CV 17.5 % (11.8-14.6); RBC DIS.WIDTH-SD 42.8 % (39-53); RED BLOOD COUNT 5.04 M/uL (3.80-5.20); WHITE BLOOD COUNT 8.3 K/uL (4.1-10.2)
[2016-11-03 04:25] LABS: AMPHETAMINE NEGATIVE (500 ng/mL); BENZODIAZEPINES PRESUMPTIVE POSITIVE (150 ng/mL); COCAINE PRESUMPTIVE POSITIVE (150 ng/mL); METHADONE NEGATIVE (200 ng/mL); METHAMPHETAMINE NEGATIVE (500 ng/mL); OPIATES (MORPHINE) NEGATIVE (100 ng/mL); PHENCYCLIDINE NEGATIVE (25 ng/mL); THC CANNABINOIDS NEGATIVE (50 ng/mL); TRICYCLIC ANTIDEPRESSANTS NEGATIVE (300 ng/mL)
[2016-11-03 04:26] LABS: ADD MEDTOX COMMENT Y; BARBITURATES NEGATIVE (200 ng/mL); INTERNAL CONTROLS VALID? YES; OXYCODONE PRESUMPTIVE POSITIVE (100 ng/mL); PROPOXYPHENE NEGATIVE (300 ng/mL)
[2016-11-03 04:27] LABS: CHLORIDE 112 mEq/L (99-109); POTASSIUM 3.7 mEq/L (3.7-5.4); SODIUM 144 mEq/L (136-147)
[2016-11-03 04:29] LABS: GLUCOSE 112 mg/dL (70-99)
[2016-11-03 04:30] LABS: ANION GAP 11 MEQ/L (2-14)
[2016-11-03 04:32] LABS: GFR ESTIMATE (CALCULATED) > 59 mL/min/; SERUM ETHYL ALCOHOL 132 mg/dL
[2016-11-03 04:33] LABS: UREA NITROGEN (BUN) 4 mg/dL (9-23)
[2016-11-03 04:42] LABS: QUANTITATIVE HCG < 4.0 MIU/ML
[2016-11-03 05:14] LABS: BENZODIAZEPINES QUANT VALUE 0 NG/ML; BENZODIAZEPINES, URINE SCREEN Negative (200 ng/mL)
[2016-11-03 11:40] VITALS: BP 153/90
[2016-11-03 11:44] VITALS: BP 153/96
[2016-11-03] MEDS ORDERED: ABILIFY10 MG PO (13:10)
[2016-11-03] MEDS ORDERED: SEROQUEL200 MG PO (13:11)
[2016-11-03] MEDS ORDERED: LYRICA25 MG PO (13:11)
[2016-11-03] MEDS ORDERED: ATIVAN1 MG PO (13:12)
[2016-11-03] MEDS ORDERED: CATAPRES0.1 MG PO (13:12)
[2016-11-03 15:19] VITALS: BP 124/57
[2016-11-04 07:39] VITALS: BP 117/57
[2016-11-04 15:36] VITALS: BP 101/52
[2016-11-05 07:30] VITALS: BP 106/52
[2016-11-05 10:44] VITALS: BP 114/56
[2016-11-05 16:19] VITALS: BP 117/72
[2016-11-06 07:32] VITALS: BP 104/57
[2016-11-06] MEDS ORDERED: QUETIAPINE FUM200 MG PO (09:20)
[2016-11-06] MEDS ORDERED: HALDOL5 MG PO (09:20)
[2016-11-06] MEDS ORDERED: EFFEXOR XR75 MG PO ×2 (09:21)
== END 2016-11-06 10:46 | disposition home or self-care (01) | DRG 883 ==
LOC: EME 03:24 → 1WEST 05:49 → EDOF 05:49 → 1WEST 11:21 → ENRESERV 11:21 → 1WEST 11-06 10:46
PROVIDERS: Emergency Medicine
DX: F60.3 Borderline personality disorder (principal); F33.1 Major depressive disorder, recurrent, moderate; R45.851 Suicidal ideations; S51.812A Laceration without foreign body of left forearm, initial encounter; X78.1XXA Intentional self-harm by knife, initial encounter; F17.210 Nicotine dependence, cigarettes, uncomplicated; F41.9 Anxiety disorder, unspecified; I12.9 Hypertensive chronic kidney disease with stage 1 through stage 4 chronic kidney disease, or unspecified chronic kidney disease; J45.909 Unspecified asthma, uncomplicated; K21.9 Gastro-esophageal reflux disease without esophagitis; N18.9 Chronic kidney disease, unspecified; F12.90 Cannabis use, unspecified, uncomplicated; F14.10 Cocaine abuse, uncomplicated; Y90.6 Blood alcohol level of 120-199 mg/100 ml; Z91.041 Radiographic dye allergy status; Y92.9 Unspecified place or not applicable
CPT/HCPCS: 80048; 84702; 84999; 85025; 90837; 97150 GO; 97165 GO; 99202; 99281; 99285; G0480

== ENCOUNTER 2016-11-19 04:04 | Emergency (ER) | payer OTHER ==
[~2016-11-19] VITALS: Ht 157.5 cm; Wt 96.7 kg
[~2016-11-19 04:04] MED LIST changes: +ABILIFY10 MG PO; +EFFEXOR XR75 MG PO; +LYRICA25 MG PO; +QUETIAPINE FUM200 MG PO
[2016-11-19 04:48] LABS: MCH 20.7 PG (29.0-34.0); MEAN PLAT.VOLUME 8.7 uM^3 (9.5-12.4); PLATELET COUNT 604 K/uL (156-360); RBC DIS.WIDTH-CV 19.2 % (11.8-14.6); RBC DIS.WIDTH-SD 46.4 % (39-53); RED BLOOD COUNT 5.36 M/uL (3.80-5.20); WHITE BLOOD COUNT 10.3 K/uL (4.1-10.2)
[2016-11-19 04:54] LABS: CHLORIDE 103 mEq/L (99-109); POTASSIUM 3.4 mEq/L (3.7-5.4); SODIUM 141 mEq/L (136-147)
[2016-11-19 04:54] LABS: ADD MIUA? YES; BILIRUBIN NEGATIVE; BLOOD NEGATIVE; COLOR STRAW ((YELLOW)); GLUCOSE (STRIP) NEGATIVE; KETONES NEGATIVE; LEUKOCYTES MODERATE; NITRITE NEGATIVE; PROTEIN (STRIP) NEGATIVE; SPECIFIC GRAVITY 1.004 (1.000-1.030); UROBILINOGEN 0.2 MG/DL (0.2-1.0)
[2016-11-19 04:56] LABS: GLUCOSE 120 mg/dL (70-99)
[2016-11-19 04:57] LABS: ANION GAP 15 MEQ/L (2-14)
[2016-11-19 04:58] LABS: TOTAL BILIRUBIN 0.3 mg/dL (0.0-1.0)
[2016-11-19 04:59] LABS: ALKALINE PHOSPHATASE 151 IU/L (3-129)
[2016-11-19 05:00] LABS: GFR ESTIMATE (CALCULATED) > 59 mL/min/
[2016-11-19 05:01] LABS: BACTERIA 1+ /HPF; EPITHELIAL CELLS RARE /HPF; MUCUS TRACE /LPF; RED BLOOD CELLS 0-5 /HPF (0-5); UCUL ADDED? YES
[2016-11-19 05:01] LABS: UREA NITROGEN (BUN) 6 mg/dL (9-23)
[2016-11-19 05:09] LABS: QUANTITATIVE HCG < 4.0 MIU/ML
[2016-11-19] MEDS ORDERED: CIPRO500 MG PO (05:16)
[2016-11-19 05:30] VITALS: BP 138/98
== END 2016-11-19 05:31 | disposition home or self-care (01) ==
LOC: EME 04:04
PROVIDERS: Physician Assistant
DX: N39.0 Urinary tract infection, site not specified (principal); R10.9 Unspecified abdominal pain; I12.9 Hypertensive chronic kidney disease with stage 1 through stage 4 chronic kidney disease, or unspecified chronic kidney disease; N18.9 Chronic kidney disease, unspecified; Z87.442 Personal history of urinary calculi; K21.9 Gastro-esophageal reflux disease without esophagitis; J45.909 Unspecified asthma, uncomplicated; Z86.73 Personal history of transient ischemic attack (TIA), and cerebral infarction without residual deficits; F17.200 Nicotine dependence, unspecified, uncomplicated
CPT/HCPCS: 80053; 81003; 84702; 85027; 87086; 99281; 99285; J1885; J2270; J2405; J7030

== ENCOUNTER 2016-12-18 01:20 | Emergency (ER) | payer OTHER ==
[~2016-12-18] VITALS: Ht 157.5 cm; Wt 98.0 kg
[2016-12-18 02:35] LABS: HEMATOCRIT 36.1 % (36.0-46.0); MCH 21.4 PG (29.0-34.0); MCHC 30.5 G/DL (30.0-36.0); MCV 70.2 FL (83-99); PLATELET COUNT 580 K/uL (156-360); RBC DIS.WIDTH-CV 19.9 % (11.8-14.6); RED BLOOD COUNT 5.14 M/uL (3.80-5.20); WHITE BLOOD COUNT 10.5 K/uL (4.1-10.2)
[2016-12-18 02:43] LABS: CHLORIDE 106 mEq/L (99-109); POTASSIUM 3.7 mEq/L (3.7-5.4); SODIUM 142 mEq/L (136-147)
[2016-12-18 02:45] LABS: GLUCOSE 110 mg/dL (70-99)
[2016-12-18 02:46] LABS: ANION GAP 14 MEQ/L (2-14)
[2016-12-18 02:47] LABS: TOTAL BILIRUBIN 0.2 mg/dL (0.0-1.0)
[2016-12-18 02:48] LABS: SERUM ETHYL ALCOHOL 225 mg/dL
[2016-12-18 02:49] LABS: ALKALINE PHOSPHATASE 127 IU/L (3-129); GFR ESTIMATE (CALCULATED) > 59 mL/min/
[2016-12-18 02:50] LABS: UREA NITROGEN (BUN) 9 mg/dL (9-23)
[2016-12-18 02:59] LABS: QUANTITATIVE HCG < 4.0 MIU/ML
[2016-12-18 04:06] LABS: ADD MIUA? YES; BILIRUBIN NEGATIVE; BLOOD SMALL; COLOR YELLOW ((YELLOW)); GLUCOSE (STRIP) NEGATIVE; KETONES NEGATIVE; LEUKOCYTES LARGE; NITRITE NEGATIVE; PROTEIN (STRIP) NEGATIVE; SPECIFIC GRAVITY 1.013 (1.000-1.030); UROBILINOGEN 0.2 MG/DL (0.2-1.0)
[2016-12-18 04:14] LABS: BACTERIA 1+ /HPF; EPITHELIAL CELLS 1+ /HPF; MUCUS TRACE /LPF; RED BLOOD CELLS 20-30 /HPF (0-5); WHITE BLOOD CELLS 40-50 /HPF (0-5)
[2016-12-18 04:18] LABS: AMPHETAMINE NEGATIVE (500 ng/mL); BARBITURATES NEGATIVE (200 ng/mL); BENZODIAZEPINES NEGATIVE (150 ng/mL); COCAINE PRESUMPTIVE POSITIVE (150 ng/mL); INTERNAL CONTROLS VALID? YES; METHADONE NEGATIVE (200 ng/mL); METHAMPHETAMINE NEGATIVE (500 ng/mL); OPIATES (MORPHINE) NEGATIVE (100 ng/mL); OXYCODONE NEGATIVE (100 ng/mL); PHENCYCLIDINE NEGATIVE (25 ng/mL); PROPOXYPHENE NEGATIVE (300 ng/mL); THC CANNABINOIDS NEGATIVE (50 ng/mL); TRICYCLIC ANTIDEPRESSANTS PRESUMPTIVE POSITIVE (300 ng/mL)
[2016-12-18 04:19] LABS: ADD MEDTOX COMMENT Y
[2016-12-18 13:01] LABS: POINT-OF-CARE METER ID UU14100415
[2016-12-18 13:08] LABS: HEMATOCRIT 38.2 % (36.0-46.0); MCH 21.2 PG (29.0-34.0); MCHC 30.1 G/DL (30.0-36.0); MCV 70.3 FL (83-99); PLATELET COUNT 591 K/uL (156-360); RBC DIS.WIDTH-CV 20.3 % (11.8-14.6); RBC DIS.WIDTH-SD 49.7 % (39-53); RED BLOOD COUNT 5.43 M/uL (3.80-5.20); WHITE BLOOD COUNT 8.4 K/uL (4.1-10.2)
[2016-12-18 20:13] VITALS: BP 129/88
== END 2016-12-18 20:15 ==
LOC: EME 01:20
PROVIDERS: Emergency Medicine; Psychiatry & Neurology Psychiatry
DX: F33.2 Major depressive disorder, recurrent severe without psychotic features (principal); R45.851 Suicidal ideations; F10.129 Alcohol abuse with intoxication, unspecified; F60.3 Borderline personality disorder; F14.90 Cocaine use, unspecified, uncomplicated; Y90.7 Blood alcohol level of 200-239 mg/100 ml; I12.9 Hypertensive chronic kidney disease with stage 1 through stage 4 chronic kidney disease, or unspecified chronic kidney disease; N18.9 Chronic kidney disease, unspecified; J45.909 Unspecified asthma, uncomplicated; Z86.73 Personal history of transient ischemic attack (TIA), and cerebral infarction without residual deficits; F17.200 Nicotine dependence, unspecified, uncomplicated
CPT/HCPCS: 80053; 81003; 82948; 84702; 84999; 85027; 90837; 99281; 99285; G0480; J2060

== ENCOUNTER 2017-01-07 03:35 | Emergency (ER) | payer OTHER ==
[~2017-01-07] VITALS: Ht 157.5 cm; Wt 83.8 kg
[2017-01-07 04:13] LABS: CHLORIDE 108 mEq/L (99-109); POTASSIUM 3.5 mEq/L (3.7-5.4); SODIUM 143 mEq/L (136-147)
[2017-01-07 04:15] LABS: GLUCOSE 121 mg/dL (70-99); HEMATOCRIT 34.3 % (36.0-46.0); MCH 22.6 PG (29.0-34.0); MCHC 30.9 G/DL (30.0-36.0); MEAN PLAT.VOLUME 8.7 uM^3 (9.5-12.4); PLATELET COUNT 504 K/uL (156-360); RBC DIS.WIDTH-CV 22.2 % (11.8-14.6); RBC DIS.WIDTH-SD 54.3 % (39-53); WHITE BLOOD COUNT 9.4 K/uL (4.1-10.2)
[2017-01-07 04:17] LABS: ANION GAP 13 MEQ/L (2-14); TOTAL BILIRUBIN 0.1 mg/dL (0.0-1.0)
[2017-01-07 04:18] LABS: SERUM ETHYL ALCOHOL 197 mg/dL
[2017-01-07 04:19] LABS: ALKALINE PHOSPHATASE 109 IU/L (3-129); GFR ESTIMATE (CALCULATED) > 59 mL/min/
[2017-01-07 04:20] LABS: UREA NITROGEN (BUN) 7 mg/dL (9-23)
[2017-01-07 04:28] LABS: QUANTITATIVE HCG < 4.0 MIU/ML
[2017-01-07 08:37] VITALS: BP 116/69
== END 2017-01-07 08:44 | disposition home or self-care (01) ==
LOC: EME 03:35
PROVIDERS: Emergency Medicine
PROC: 0HQEXZZ Repair Left Lower Arm Skin, External Approach (ICD-10-PCS; principal; 2017-01-07)
DX: F33.2 Major depressive disorder, recurrent severe without psychotic features (principal); F10.129 Alcohol abuse with intoxication, unspecified; S61.512A Laceration without foreign body of left wrist, initial encounter; X78.1XXA Intentional self-harm by knife, initial encounter; Z91.5 Personal history of self-harm; F41.0 Panic disorder [episodic paroxysmal anxiety]; F41.1 Generalized anxiety disorder; F43.10 Post-traumatic stress disorder, unspecified; F60.3 Borderline personality disorder; N83.209 Unspecified ovarian cyst, unspecified side; K21.9 Gastro-esophageal reflux disease without esophagitis; J45.909 Unspecified asthma, uncomplicated; I12.9 Hypertensive chronic kidney disease with stage 1 through stage 4 chronic kidney disease, or unspecified chronic kidney disease; N18.9 Chronic kidney disease, unspecified; F41.9 Anxiety disorder, unspecified; F17.200 Nicotine dependence, unspecified, uncomplicated
CPT/HCPCS: 80053; 81003; 84702; 85027; 90837; 99281; 99285; G0480; J1630; J2250

== ENCOUNTER 2017-01-26 08:15 | Inpatient (IN) | payer OTHER ==
[~2017-01-26] VITALS: Ht 157.5 cm; Wt 100.7 kg
[2017-01-26 09:17] LABS: HEMATOCRIT 39.4 % (36.0-46.0); MCH 23.9 PG (29.0-34.0); MCHC 31.2 G/DL (30.0-36.0); MCV 76.7 FL (83-99); MEAN PLAT.VOLUME 9.3 uM^3 (9.5-12.4); PLATELET COUNT 427 K/uL (156-360); RBC DIS.WIDTH-CV 23.5 % (11.8-14.6); RBC DIS.WIDTH-SD 64.2 % (39-53); RED BLOOD COUNT 5.14 M/uL (3.80-5.20); WHITE BLOOD COUNT 10.1 K/uL (4.1-10.2)
[2017-01-26 09:23] LABS: BASOPHIL COUNT 0.1 K/uL (0-0.1); EOSINOPHIL (%) 1.9 % (0-5); EOSINOPHIL COUNT 0.2 K/uL (0-0.3); IMMATURE GRANULOCYTE (%) 0.7 % (0.0-0.7); IMMATURE GRANULOCYTE COUNT 0.1 K/uL; INSTRUMENT ABS NEUTROPHIL CT 5.6 K/uL; LYMPHOCYTE COUNT 3.5 K/uL (1.0-2.8); MONOCYTE (%) 6.3 % (3-12); MONOCYTE COUNT 0.6 K/uL (0-0.8); NEUTROPHIL (%) 55.7 % (45-76); NEUTROPHIL COUNT 5.6 K/uL (1.8-6.4)
[2017-01-26 09:25] LABS: CHLORIDE 109 mEq/L (99-109); SODIUM 144 mEq/L (136-147)
[2017-01-26 09:27] LABS: GLUCOSE 122 mg/dL (70-99)
[2017-01-26 09:28] LABS: ANION GAP 16 MEQ/L (2-14)
[2017-01-26 09:28] LABS: ADD MIUA? NO; BILIRUBIN NEGATIVE; BLOOD NEGATIVE; COLOR STRAW ((YELLOW)); GLUCOSE (STRIP) NEGATIVE; KETONES NEGATIVE; LEUKOCYTES NEGATIVE; NITRITE NEGATIVE; PROTEIN (STRIP) NEGATIVE; SPECIFIC GRAVITY 1.011 (1.000-1.030); UCUL ADDED? NO; UROBILINOGEN 0.2 MG/DL (0.2-1.0)
[2017-01-26 09:29] LABS: TOTAL BILIRUBIN 0.1 mg/dL (0.0-1.0)
[2017-01-26 09:30] LABS: SERUM ETHYL ALCOHOL 211 mg/dL
[2017-01-26 09:31] LABS: GFR ESTIMATE (CALCULATED) > 59 mL/min/
[2017-01-26 09:32] LABS: ALKALINE PHOSPHATASE 115 IU/L (3-129)
[2017-01-26 09:33] LABS: UREA NITROGEN (BUN) 11 mg/dL (9-23)
[2017-01-26 09:34] LABS: QUANTITATIVE HCG < 4.0 MIU/ML; SALICYLATE < 5.0 MG/DL (15-30)
[2017-01-26 10:03] LABS: AMPHETAMINE NEGATIVE (500 ng/mL); BARBITURATES NEGATIVE (200 ng/mL); BENZODIAZEPINES PRESUMPTIVE POSITIVE (150 ng/mL); COCAINE PRESUMPTIVE POSITIVE (150 ng/mL); INTERNAL CONTROLS VALID? YES; METHADONE NEGATIVE (200 ng/mL); METHAMPHETAMINE NEGATIVE (500 ng/mL); OPIATES (MORPHINE) NEGATIVE (100 ng/mL); OXYCODONE NEGATIVE (100 ng/mL); PHENCYCLIDINE NEGATIVE (25 ng/mL); PROPOXYPHENE NEGATIVE (300 ng/mL); THC CANNABINOIDS NEGATIVE (50 ng/mL); TRICYCLIC ANTIDEPRESSANTS PRESUMPTIVE POSITIVE (300 ng/mL)
[2017-01-26 10:05] LABS: ADD MEDTOX COMMENT Y
[2017-01-26 10:38] LABS: BENZODIAZEPINES QUANT VALUE 0 NG/ML; BENZODIAZEPINES, URINE SCREEN Negative (200 ng/mL)
[2017-01-26 17:44] VITALS: BP 135/85
[2017-01-26 17:54] VITALS: BP 135/85
[2017-01-27 07:50] VITALS: BP 133/74
[2017-01-27 11:50] VITALS: BP 123/65
[2017-01-27 15:35] VITALS: BP 118/66
[2017-01-28 07:23] VITALS: BP 121/57
[2017-01-28 15:46] VITALS: BP 121/75
[2017-01-29 07:44] VITALS: BP 124/74
[2017-01-29 15:22] VITALS: BP 116/72
[2017-01-30 07:51] VITALS: BP 126/69
[2017-01-30] MEDS ORDERED: NALTREXONE HCL50 MG PO (09:45)
== END 2017-01-30 11:00 | disposition home or self-care (01) | DRG 885 ==
LOC: EME 08:15 → 1WEST 15:52 → EDOF 15:52 → ENRESERV 16:30 → 1WEST 17:02
PROVIDERS: Emergency Medicine
PROC: 0HQEXZZ Repair Left Lower Arm Skin, External Approach (ICD-10-PCS; principal; 2017-01-26)
DX: F31.9 Bipolar disorder, unspecified (principal); S51.812A Laceration without foreign body of left forearm, initial encounter; F60.3 Borderline personality disorder; F10.920 Alcohol use, unspecified with intoxication, uncomplicated; Y90.7 Blood alcohol level of 200-239 mg/100 ml; E66.9 Obesity, unspecified; F14.20 Cocaine dependence, uncomplicated; Z76.5 Malingerer [conscious simulation]; N18.9 Chronic kidney disease, unspecified; I12.9 Hypertensive chronic kidney disease with stage 1 through stage 4 chronic kidney disease, or unspecified chronic kidney disease; K21.9 Gastro-esophageal reflux disease without esophagitis; Z86.73 Personal history of transient ischemic attack (TIA), and cerebral infarction without residual deficits; F17.200 Nicotine dependence, unspecified, uncomplicated; G89.29 Other chronic pain
CPT/HCPCS: 76856; 80053; 80178; 81003; 84702; 84999; 85025; 90837; 93005; 94760; 97150 GO; 97165 GO; 99202; 99281; 99285; G0480; J1885; J2060; J3486; J7030

== ENCOUNTER 2017-02-25 20:31 | Emergency (ER) | payer OTHER ==
[~2017-02-25] VITALS: Ht 167.6 cm; Wt 97.3 kg
[~2017-02-25 20:31] MED LIST changes: +NALTREXONE HCL50 MG PO
[2017-02-25 21:23] LABS: HEMATOCRIT 36.5 % (36.0-46.0); HEMOGLOBIN 11.6 G/DL (11.9-15.5); MCHC 31.8 G/DL (30.0-36.0); MCV 78.7 FL (83-99); PLATELET COUNT 458 K/uL (156-360); RBC DIS.WIDTH-CV 20.1 % (11.8-14.6); RBC DIS.WIDTH-SD 57.3 % (39-53); RED BLOOD COUNT 4.64 M/uL (3.80-5.20); WHITE BLOOD COUNT 14.9 K/uL (4.1-10.2)
[2017-02-25 21:25] LABS: BASOPHIL (%) 0.3 % (0-1); EOSINOPHIL (%) 1.7 % (0-5); EOSINOPHIL COUNT 0.3 K/uL (0-0.3); IMMATURE GRANULOCYTE (%) 0.4 % (0.0-0.7); LYMPHOCYTE (%) 15.8 % (15-42); LYMPHOCYTE COUNT 2.4 K/uL (1.0-2.8); MONOCYTE (%) 4.6 % (3-12); MONOCYTE COUNT 0.7 K/uL (0-0.8); NEUTROPHIL (%) 77.2 % (45-76); NEUTROPHIL COUNT 11.5 K/uL (1.8-6.4)
[2017-02-25 21:31] LABS: CHLORIDE 101 mEq/L (99-109); POTASSIUM 3.6 mEq/L (3.7-5.4); SODIUM 137 mEq/L (136-147)
[2017-02-25 21:33] LABS: GLUCOSE 107 mg/dL (70-99)
[2017-02-25 21:34] LABS: TOTAL PROTEIN 7.3 g/dL (6.4-8.3)
[2017-02-25 21:35] LABS: TOTAL BILIRUBIN 0.4 mg/dL (0.0-1.0)
[2017-02-25 21:36] LABS: SERUM ETHYL ALCOHOL < 10 mg/dL
[2017-02-25 21:37] LABS: ALKALINE PHOSPHATASE 97 IU/L (3-129); CREATININE 0.7 mg/dL (0.6-1.3); GFR ESTIMATE (CALCULATED) > 59 mL/min/
[2017-02-25 21:38] LABS: UREA NITROGEN (BUN) 9 mg/dL (9-23)
[2017-02-25 21:39] LABS: AST (GOT) 46 IU/L (2-34)
[2017-02-25 21:40] LABS: ALT (GPT) 38 IU/L (3-49)
[2017-02-25 22:33] LABS: VALPROIC ACID (DEPAKOTE) 39.1 MCG/ML (50-100)
[2017-02-25 23:03] LABS: AMPHETAMINE NEGATIVE (500 ng/mL); BARBITURATES NEGATIVE (200 ng/mL); BENZODIAZEPINES PRESUMPTIVE POSITIVE (150 ng/mL); BUPRENORPHINE NEGATIVE (10 ng/mL); COCAINE PRESUMPTIVE POSITIVE (150 ng/mL); METHADONE NEGATIVE (200 ng/mL); METHAMPHETAMINE NEGATIVE (500 ng/mL); OPIATES (MORPHINE) NEGATIVE (100 ng/mL); OXYCODONE NEGATIVE (100 ng/mL); PHENCYCLIDINE NEGATIVE (25 ng/mL); PROPOXYPHENE NEGATIVE (300 ng/mL); THC CANNABINOIDS NEGATIVE (50 ng/mL); TRICYCLIC ANTIDEPRESSANTS PRESUMPTIVE POSITIVE (300 ng/mL)
[2017-02-25 23:36] LABS: CARBON DIOXIDE (BICARBONATE) 37.4 MEQ/L (20-31)
[2017-02-25 23:39] LABS: BENZODIAZEPINES, URINE SCREEN POSITIVE (200 ng/mL)
[2017-02-26] MEDS ORDERED: TYLENOL EXTRA500 MG PO (01:55)
[2017-02-26 02:25] VITALS: BP 118/80
== END 2017-02-26 02:27 | disposition home or self-care (01) ==
LOC: EME → EDBD 20:31 → EME 02-26 02:27
PROVIDERS: Emergency Medicine
DX: F19.10 Other psychoactive substance abuse, uncomplicated (principal); K21.9 Gastro-esophageal reflux disease without esophagitis; I10 Essential (primary) hypertension; F31.9 Bipolar disorder, unspecified; F32.9 Major depressive disorder, single episode, unspecified; F17.200 Nicotine dependence, unspecified, uncomplicated; Z86.73 Personal history of transient ischemic attack (TIA), and cerebral infarction without residual deficits; Z87.442 Personal history of urinary calculi; Z91.041 Radiographic dye allergy status
CPT/HCPCS: 70450; 80053; 80164; 82140; 82803; 84999; 85025; 93005; 99281; 99285; G0480; J1885; J7030

== ENCOUNTER 2017-03-07 19:14 | Emergency (ER) | payer OTHER ==
[~2017-03-07] VITALS: Ht 157.5 cm; Wt 98.8 kg
[~2017-03-07 19:14] MED LIST changes: +TYLENOL EXTRA500 MG PO
[2017-03-07 19:47] LABS: HEMATOCRIT 39.3 % (36.0-46.0); HEMOGLOBIN 12.7 G/DL (11.9-15.5); MCH 25.8 PG (29.0-34.0); MCHC 32.3 G/DL (30.0-36.0); MCV 79.9 FL (83-99); PLATELET COUNT 465 K/uL (156-360); RBC DIS.WIDTH-CV 19.2 % (11.8-14.6); RBC DIS.WIDTH-SD 55.3 % (39-53); RED BLOOD COUNT 4.92 M/uL (3.80-5.20); WHITE BLOOD COUNT 23.8 K/uL (4.1-10.2)
[2017-03-07 19:58] LABS: CHLORIDE 102 mEq/L (99-109); POTASSIUM 3.9 mEq/L (3.7-5.4); SODIUM 137 mEq/L (136-147)
[2017-03-07 20:00] LABS: GLUCOSE 117 mg/dL (70-99)
[2017-03-07 20:03] LABS: CREATININE 0.9 mg/dL (0.6-1.3); GFR ESTIMATE (CALCULATED) > 59 mL/min/; SERUM ETHYL ALCOHOL < 10 mg/dL
[2017-03-07 20:04] LABS: UREA NITROGEN (BUN) 12 mg/dL (9-23)
[2017-03-07 20:28] LABS: ACETAMINOPHEN (TYLENOL) < 10 mcg/mL (10-30); SALICYLATE < 5.0 MG/DL (15-30)
[2017-03-07 21:53] LABS: PHENCYCLIDINE NEGATIVE (25 ng/mL); THC CANNABINOIDS NEGATIVE (50 ng/mL)
[2017-03-07 21:54] LABS: AMPHETAMINE NEGATIVE (500 ng/mL); BARBITURATES NEGATIVE (200 ng/mL); BENZODIAZEPINES PRESUMPTIVE POSITIVE (150 ng/mL); BUPRENORPHINE NEGATIVE (10 ng/mL); COCAINE PRESUMPTIVE POSITIVE (150 ng/mL); METHADONE NEGATIVE (200 ng/mL); METHAMPHETAMINE NEGATIVE (500 ng/mL); OPIATES (MORPHINE) NEGATIVE (100 ng/mL); OXYCODONE NEGATIVE (100 ng/mL); PROPOXYPHENE NEGATIVE (300 ng/mL); TRICYCLIC ANTIDEPRESSANTS PRESUMPTIVE POSITIVE (300 ng/mL)
[2017-03-07 22:26] LABS: BENZODIAZEPINES, URINE SCREEN POSITIVE (200 ng/mL)
[2017-03-08] MEDS ORDERED: BACLOFEN10 MG PO (00:19)
[2017-03-08] MEDS ORDERED: LORAZEPAM1 MG PO (00:21)
[2017-03-08] MEDS ORDERED: TRAMADOL HCL50 MG PO (00:21)
[2017-03-08] MEDS ORDERED: VENLAFAXINE HCL75 M3 PO (00:25)
[2017-03-08] MEDS ORDERED: QUETIAPINE FUM300 MG PO (00:25)
[2017-03-08] MEDS ORDERED: AMITRIPTYLINE H25 MG PO (00:37)
[2017-03-08] MEDS ORDERED: LITHIUM CARBON300 MG PO ×2 (00:42→00:49)
[2017-03-08] MEDS ORDERED: INDERAL20 MG PO (00:44)
[2017-03-08] MEDS ORDERED: CLONIDINE HCL0.1 MG PO (00:45)
[2017-03-08 02:55] LABS: BASOPHIL (%) 0.4 % (0-1); BASOPHIL COUNT 0.1 K/uL (0-0.1); EOSINOPHIL (%) 2.2 % (0-5); EOSINOPHIL COUNT 0.3 K/uL (0-0.3); HEMATOCRIT 35.5 % (36.0-46.0); HEMOGLOBIN 11.3 G/DL (11.9-15.5); IMMATURE GRANULOCYTE (%) 0.4 % (0.0-0.7); LYMPHOCYTE (%) 27.3 % (15-42); LYMPHOCYTE COUNT 3.9 K/uL (1.0-2.8); MCH 25.6 PG (29.0-34.0); MCHC 31.8 G/DL (30.0-36.0); MCV 80.3 FL (83-99); MONOCYTE (%) 4.9 % (3-12); MONOCYTE COUNT 0.7 K/uL (0-0.8); NEUTROPHIL (%) 64.8 % (45-76); NEUTROPHIL COUNT 9.2 K/uL (1.8-6.4); PLATELET COUNT 400 K/uL (156-360); RBC DIS.WIDTH-SD 55.5 % (39-53); RED BLOOD COUNT 4.42 M/uL (3.80-5.20); WHITE BLOOD COUNT 14.2 K/uL (4.1-10.2)
[2017-03-08 09:13] VITALS: BP 124/69
== END 2017-03-08 09:17 | disposition home or self-care (01) ==
LOC: EME 19:14
PROVIDERS: Emergency Medicine
DX: F33.2 Major depressive disorder, recurrent severe without psychotic features (principal); F41.9 Anxiety disorder, unspecified; T42.4X2A Poisoning by benzodiazepines, intentional self-harm, initial encounter; T40.4X2A Poisoning by other synthetic narcotics, intentional self-harm, initial encounter; F60.3 Borderline personality disorder; I12.9 Hypertensive chronic kidney disease with stage 1 through stage 4 chronic kidney disease, or unspecified chronic kidney disease; N18.9 Chronic kidney disease, unspecified; J45.909 Unspecified asthma, uncomplicated; Z86.73 Personal history of transient ischemic attack (TIA), and cerebral infarction without residual deficits; F14.90 Cocaine use, unspecified, uncomplicated; F10.10 Alcohol abuse, uncomplicated; F17.200 Nicotine dependence, unspecified, uncomplicated
CPT/HCPCS: 73060; 80048; 84999; 85025; 85027; 90839; 93005; 99281; 99284; G0480; J3010; J7030

== ENCOUNTER 2017-05-26 05:20 | Emergency (ER) | payer OTHER ==
[~2017-05-26] VITALS: Ht 157.5 cm; Wt 97.7 kg
[~2017-05-26 05:20] MED LIST changes: +AMITRIPTYLINE H25 MG PO; +CLONIDINE HCL0.1 MG PO; +INDERAL20 MG PO; +LITHIUM CARBON300 MG PO; +VENLAFAXINE HCL75 M3 PO
[2017-05-26 06:23] LABS: HEMATOCRIT 40.2 % (36.0-46.0); HEMOGLOBIN 13.3 G/DL (11.9-15.5); MCH 27.1 PG (29.0-34.0); MCHC 33.1 G/DL (30.0-36.0); PLATELET COUNT 496 K/uL (156-360); RBC DIS.WIDTH-CV 15.4 % (11.8-14.6); RBC DIS.WIDTH-SD 46.1 % (39-53); WHITE BLOOD COUNT 8.5 K/uL (4.1-10.2)
[2017-05-26 06:40] LABS: ALBUMIN 4.1 g/dL (3.2-4.8); CHLORIDE 107 mEq/L (99-109); POTASSIUM 3.9 mEq/L (3.7-5.4); SODIUM 146 mEq/L (136-147)
[2017-05-26 06:43] LABS: GLUCOSE 99 mg/dL (70-99); TOTAL PROTEIN 7.3 g/dL (6.4-8.3)
[2017-05-26 06:44] LABS: TOTAL BILIRUBIN 0.2 mg/dL (0.0-1.0)
[2017-05-26 06:46] LABS: ALKALINE PHOSPHATASE 121 IU/L (3-129); CREATININE 0.8 mg/dL (0.6-1.3); GFR ESTIMATE (CALCULATED) > 59 mL/min/
[2017-05-26 06:47] LABS: UREA NITROGEN (BUN) 6 mg/dL (9-23)
[2017-05-26 06:48] LABS: AST (GOT) 29 IU/L (2-34)
[2017-05-26 06:49] LABS: ALT (GPT) 52 IU/L (3-49)
[2017-05-26 06:56] LABS: QUANTITATIVE HCG < 4.0 MIU/ML
[2017-05-26 07:30] LABS: APPEARANCE CLOUDY ((CLEAR)); BILIRUBIN NEGATIVE; BLOOD MODERATE; COLOR YELLOW ((YELLOW)); GLUCOSE (STRIP) NEGATIVE; KETONES NEGATIVE; LEUKOCYTES LARGE; NITRITE NEGATIVE; PROTEIN (STRIP) NEGATIVE; SPECIFIC GRAVITY 1.011 (1.000-1.030); UROBILINOGEN 0.2 MG/DL (0.2-1.0)
[2017-05-26 07:44] LABS: BACTERIA 1+ /HPF; EPITHELIAL CELLS 2+ /HPF; MUCUS RARE /LPF; UCUL ADDED? YES; WHITE BLOOD CELLS TNTC /HPF (0-5)
[2017-05-26] MEDS ORDERED: CITROMA296 ML PO (09:59)
[2017-05-26] MEDS ORDERED: CIPRO500 MG PO (10:01)
[2017-05-26 10:24] VITALS: BP 129/81
== END 2017-05-26 10:27 | disposition home or self-care (01) ==
LOC: EME 05:20
DX: N30.00 Acute cystitis without hematuria (principal); I12.9 Hypertensive chronic kidney disease with stage 1 through stage 4 chronic kidney disease, or unspecified chronic kidney disease; N18.9 Chronic kidney disease, unspecified; K21.9 Gastro-esophageal reflux disease without esophagitis; G43.909 Migraine, unspecified, not intractable, without status migrainosus; F17.200 Nicotine dependence, unspecified, uncomplicated; Z86.73 Personal history of transient ischemic attack (TIA), and cerebral infarction without residual deficits; Z87.442 Personal history of urinary calculi; Z90.721 Acquired absence of ovaries, unilateral; Z91.041 Radiographic dye allergy status
CPT/HCPCS: 74176; 80053; 81003; 84702; 85027; 87077; 87086; 87186; 99281; 99284

== ENCOUNTER 2017-07-16 09:09 | Emergency (ER) | payer OTHER ==
[~2017-07-16] VITALS: Ht 157.5 cm; Wt 98.1 kg
[~2017-07-16 09:09] MED LIST changes: +CITROMA296 ML PO
[2017-07-16 09:50] LABS: HEMATOCRIT 39.9 % (36.0-46.0); HEMOGLOBIN 13.6 G/DL (11.9-15.5); MCH 27.9 PG (29.0-34.0); MCHC 34.1 G/DL (30.0-36.0); MCV 81.8 FL (83-99); PLATELET COUNT 477 K/uL (156-360); RBC DIS.WIDTH-CV 14.4 % (11.8-14.6); RBC DIS.WIDTH-SD 42.2 % (39-53); RED BLOOD COUNT 4.88 M/uL (3.80-5.20); WHITE BLOOD COUNT 15.1 K/uL (4.1-10.2)
[2017-07-16 09:53] LABS: AMPHETAMINE NEGATIVE (500 ng/mL); BARBITURATES NEGATIVE (200 ng/mL); BENZODIAZEPINES PRESUMPTIVE POSITIVE (150 ng/mL); BUPRENORPHINE NEGATIVE (10 ng/mL); COCAINE PRESUMPTIVE POSITIVE (150 ng/mL); METHADONE NEGATIVE (200 ng/mL); METHAMPHETAMINE NEGATIVE (500 ng/mL); OPIATES (MORPHINE) NEGATIVE (100 ng/mL); OXYCODONE NEGATIVE (100 ng/mL); PHENCYCLIDINE NEGATIVE (25 ng/mL); PROPOXYPHENE NEGATIVE (300 ng/mL); THC CANNABINOIDS NEGATIVE (50 ng/mL); TRICYCLIC ANTIDEPRESSANTS PRESUMPTIVE POSITIVE (300 ng/mL)
[2017-07-16 09:59] LABS: ALBUMIN 4.3 g/dL (3.2-4.8); CHLORIDE 106 mEq/L (99-109); POTASSIUM 3.8 mEq/L (3.7-5.4); SODIUM 144 mEq/L (136-147)
[2017-07-16 10:01] LABS: GLUCOSE 98 mg/dL (70-99); TOTAL PROTEIN 7.6 g/dL (6.4-8.3)
[2017-07-16 10:03] LABS: SERUM ETHYL ALCOHOL 174 mg/dL; TOTAL BILIRUBIN 0.2 mg/dL (0.0-1.0)
[2017-07-16 10:05] LABS: ALKALINE PHOSPHATASE 112 IU/L (3-129); CREATININE 0.8 mg/dL (0.6-1.3); GFR ESTIMATE (CALCULATED) > 59 mL/min/
[2017-07-16 10:06] LABS: LIPASE 27 U/L (1.0-51.0); UREA NITROGEN (BUN) 6 mg/dL (9-23)
[2017-07-16 10:07] LABS: AST (GOT) 16 IU/L (2-34)
[2017-07-16 10:08] LABS: ALT (GPT) 24 IU/L (3-49)
[2017-07-16 10:14] LABS: QUANTITATIVE HCG < 4.0 MIU/ML
[2017-07-16 10:40] LABS: BENZODIAZEPINES, URINE SCREEN Negative (200 ng/mL)
[2017-07-16 17:32] VITALS: BP 125/72
== END 2017-07-16 17:33 | disposition home or self-care (01) ==
LOC: EME 09:09
PROVIDERS: Emergency Medicine Emergency Medical Services
DX: R45.851 Suicidal ideations (principal); R10.31 Right lower quadrant pain; F14.10 Cocaine abuse, uncomplicated; F10.10 Alcohol abuse, uncomplicated; Y90.6 Blood alcohol level of 120-199 mg/100 ml; F41.9 Anxiety disorder, unspecified; F60.3 Borderline personality disorder; F33.1 Major depressive disorder, recurrent, moderate; I12.9 Hypertensive chronic kidney disease with stage 1 through stage 4 chronic kidney disease, or unspecified chronic kidney disease; N18.9 Chronic kidney disease, unspecified; K21.9 Gastro-esophageal reflux disease without esophagitis; Z86.73 Personal history of transient ischemic attack (TIA), and cerebral infarction without residual deficits; F17.200 Nicotine dependence, unspecified, uncomplicated
CPT/HCPCS: 74176; 80048; 80053; 83690; 84702; 84999; 85027; 90839; 99281; 99285; G0480

== ENCOUNTER → 2017-07-29 14:58 | Emergency (ER) | payer OTHER | END | disposition left against medical advice (07) | LOC: EME 14:58 | DX: S99.911A Unspecified injury of right ankle, initial encounter (principal); Z53.21 Procedure and treatment not carried out due to patient leaving prior to being seen by health care provider ==

== ENCOUNTER 2017-08-28 22:26 | Observation (INO) | payer OTHER ==
[~2017-08-28] VITALS: Ht 157.5 cm; Wt 100.1 kg
[2017-08-29 02:57] LABS: HEMOGLOBIN 14.7 G/DL (11.9-15.5); MCH 28.7 PG (29.0-34.0); MCHC 34.2 G/DL (30.0-36.0); MCV 83.8 FL (83-99); PLATELET COUNT 470 K/uL (156-360); RBC DIS.WIDTH-CV 14.7 % (11.8-14.6); RBC DIS.WIDTH-SD 45.4 % (39-53); RED BLOOD COUNT 5.13 M/uL (3.80-5.20); WHITE BLOOD COUNT 14.6 K/uL (4.1-10.2)
[2017-08-29 03:09] LABS: CHLORIDE 104 mEq/L (99-109); POTASSIUM 3.8 mEq/L (3.7-5.4); SODIUM 139 mEq/L (136-147)
[2017-08-29 03:11] LABS: GLUCOSE 99 mg/dL (70-99)
[2017-08-29 03:15] LABS: CREATININE 0.8 mg/dL (0.6-1.3); GFR ESTIMATE (CALCULATED) > 59 mL/min/
[2017-08-29 03:16] LABS: UREA NITROGEN (BUN) 8 mg/dL (9-23)
[2017-08-29 03:25] LABS: QUANTITATIVE HCG < 4.0 MIU/ML
[2017-08-29] MEDS ORDERED: DEPAKOTE500 MG PO (08:57)
[2017-08-29] MEDS ORDERED: ATARAX,VISTARIL25 MG PO (08:58)
[2017-08-29] MEDS ORDERED: LITHIUM CARBON300 MG PO (08:59)
[2017-08-29] MEDS ORDERED: CATAPRES0.1 MG PO (09:01)
[2017-08-29 10:00] LABS: SERUM ETHYL ALCOHOL < 10 mg/dL
[2017-08-29] MEDS ORDERED: TRAMADOL HCL50 MG PO (10:50)
[2017-08-29] MEDS ORDERED: BACLOFEN10 MG PO (10:51)
[2017-08-29] MEDS ORDERED: BELSOMRA20 MG PO (10:52)
[2017-08-29 13:50] VITALS: BP 153/89
[2017-08-29 15:19] VITALS: BP 148/81
[2017-08-29] MEDS ORDERED: BUTALB-APAP-CA1 EACH PO (15:47)
[2017-08-29 15:53] LABS: APPEARANCE SL.HAZY ((CLEAR)); BILIRUBIN NEGATIVE; BLOOD NEGATIVE; COLOR STRAW ((YELLOW)); GLUCOSE (STRIP) 50; KETONES 20; LEUKOCYTES NEGATIVE; NITRITE NEGATIVE; PROTEIN (STRIP) NEGATIVE; SPECIFIC GRAVITY 1.012 (1.000-1.030); UROBILINOGEN 0.2 MG/DL (0.2-1.0)
[2017-08-29 16:05] LABS: BACTERIA NONE SEEN /HPF; EPITHELIAL CELLS 2+ /HPF; MUCUS TRACE /LPF; RED BLOOD CELLS 0-5 /HPF (0-5); UCUL ADDED? NO; WHITE BLOOD CELLS 0-5 /HPF (0-5)
[2017-08-29 17:05] LABS: BENZODIAZEPINES, URINE SCREEN Negative (200 ng/mL)
== END 2017-08-29 16:34 | disposition home or self-care (01) ==
LOC: EME 22:26 → EDOF 08-29 08:24 → ENRESERV 08-29 08:25 → 2SOUTH 08-29 11:18 → EDOF 08-29 11:18 → ENRESERV 08-29 11:40 → 4SOUTH 08-29 13:10
PROVIDERS: Emergency Medicine; Student in an Organized Health Care Education/Training Program
PROC: 00JU3ZZ Inspection of Spinal Canal, Percutaneous Approach (ICD-10-PCS; principal; 2017-08-29)
DX: G43.909 Migraine, unspecified, not intractable, without status migrainosus (principal); F31.9 Bipolar disorder, unspecified; F60.3 Borderline personality disorder; I10 Essential (primary) hypertension; F10.10 Alcohol abuse, uncomplicated; F19.10 Other psychoactive substance abuse, uncomplicated; D72.829 Elevated white blood cell count, unspecified; Z87.442 Personal history of urinary calculi; Z81.8 Family history of other mental and behavioral disorders; Z86.19 Personal history of other infectious and parasitic diseases; Z91.041 Radiographic dye allergy status
CPT/HCPCS: 70496; 70498; 77003; 80048; 80178; 80306 90; 81003; 82945; 84157; 84702; 85027; 87070; 87205; 89051; 99281; 99285; G0378; G0480; J0780; J1100; J1200; J1630; J2060; J2405; J2765; J3475; J7030

== ENCOUNTER 2017-09-03 00:55 | Emergency (ER) | payer OTHER ==
[~2017-09-03] VITALS: Ht 157.5 cm; Wt 100.7 kg
[~2017-09-03 00:55] MED LIST changes: +BELSOMRA20 MG PO; +BUTALB-APAP-CA1 EACH PO; +DEPAKOTE500 MG PO
[2017-09-03 01:21] LABS: HEMATOCRIT 40.6 % (36.0-46.0); HEMOGLOBIN 13.6 G/DL (11.9-15.5); MCH 28.1 PG (29.0-34.0); MCHC 33.5 G/DL (30.0-36.0); MCV 83.9 FL (83-99); PLATELET COUNT 492 K/uL (156-360); RBC DIS.WIDTH-CV 14.6 % (11.8-14.6); RBC DIS.WIDTH-SD 44.4 % (39-53); RED BLOOD COUNT 4.84 M/uL (3.80-5.20); WHITE BLOOD COUNT 12.2 K/uL (4.1-10.2)
[2017-09-03 01:44] LABS: APPEARANCE CLEAR ((CLEAR)); BILIRUBIN NEGATIVE; BLOOD NEGATIVE; COLOR STRAW ((YELLOW)); GLUCOSE (STRIP) NEGATIVE; KETONES NEGATIVE; LEUKOCYTES NEGATIVE; NITRITE NEGATIVE; PROTEIN (STRIP) NEGATIVE; SPECIFIC GRAVITY 1.005 (1.000-1.030); UCUL ADDED? NO; UROBILINOGEN 0.2 MG/DL (0.2-1.0)
[2017-09-03 01:53] LABS: CHLORIDE 102 mEq/L (99-109); POTASSIUM 3.6 mEq/L (3.7-5.4); SODIUM 137 mEq/L (136-147)
[2017-09-03 01:55] LABS: GLUCOSE 121 mg/dL (70-99)
[2017-09-03 01:58] LABS: AMPHETAMINE NEGATIVE (500 ng/mL); BENZODIAZEPINES NEGATIVE (150 ng/mL); COCAINE NEGATIVE (150 ng/mL); METHAMPHETAMINE NEGATIVE (500 ng/mL); OPIATES (MORPHINE) NEGATIVE (100 ng/mL); PHENCYCLIDINE NEGATIVE (25 ng/mL); THC CANNABINOIDS NEGATIVE (50 ng/mL); TRICYCLIC ANTIDEPRESSANTS PRESUMPTIVE POSITIVE (300 ng/mL)
[2017-09-03 01:59] LABS: BARBITURATES PRESUMPTIVE POSITIVE (200 ng/mL); BUPRENORPHINE NEGATIVE (10 ng/mL); METHADONE NEGATIVE (200 ng/mL); OXYCODONE NEGATIVE (100 ng/mL); PROPOXYPHENE NEGATIVE (300 ng/mL)
[2017-09-03 01:59] LABS: CREATININE 0.8 mg/dL (0.6-1.3); GFR ESTIMATE (CALCULATED) > 59 mL/min/; UREA NITROGEN (BUN) 9 mg/dL (9-23)
[2017-09-03] MEDS ORDERED: MAXALT5 MG PO (04:42)
[2017-09-03 04:57] VITALS: BP 143/108
== END 2017-09-03 04:50 | disposition home or self-care (01) ==
LOC: EME → EDBD 00:55 → EME 00:55
PROVIDERS: Emergency Medicine
DX: G43.909 Migraine, unspecified, not intractable, without status migrainosus (principal); R11.2 Nausea with vomiting, unspecified; I12.9 Hypertensive chronic kidney disease with stage 1 through stage 4 chronic kidney disease, or unspecified chronic kidney disease; N18.9 Chronic kidney disease, unspecified; J45.909 Unspecified asthma, uncomplicated; Z86.73 Personal history of transient ischemic attack (TIA), and cerebral infarction without residual deficits; Z87.442 Personal history of urinary calculi; F17.200 Nicotine dependence, unspecified, uncomplicated
CPT/HCPCS: 80048; 81003; 84702; 84999; 85027; 99281; 99285; J0780; J1200; J1630; J3030; J7030

== ENCOUNTER 2017-09-08 14:24 | Emergency (ER) | payer OTHER ==
[~2017-09-08 14:24] MED LIST changes: +MAXALT5 MG PO
[2017-09-08 14:53] LABS: BASOPHIL (%) 0.5 % (0-1); BASOPHIL COUNT 0.1 K/uL (0-0.1); EOSINOPHIL (%) 2.2 % (0-5); EOSINOPHIL COUNT 0.3 K/uL (0-0.3); HEMATOCRIT 42.1 % (36.0-46.0); HEMOGLOBIN 14.1 G/DL (11.9-15.5); IMMATURE GRANULOCYTE (%) 0.5 % (0.0-0.7); LYMPHOCYTE (%) 27.7 % (15-42); LYMPHOCYTE COUNT 4.1 K/uL (1.0-2.8); MCH 28.2 PG (29.0-34.0); MCHC 33.5 G/DL (30.0-36.0); MCV 84.2 FL (83-99); MONOCYTE (%) 5.6 % (3-12); MONOCYTE COUNT 0.8 K/uL (0-0.8); NEUTROPHIL (%) 63.5 % (45-76); NEUTROPHIL COUNT 9.3 K/uL (1.8-6.4); PLATELET COUNT 458 K/uL (156-360); RBC DIS.WIDTH-CV 14.7 % (11.8-14.6); WHITE BLOOD COUNT 14.7 K/uL (4.1-10.2)
[2017-09-08 15:02] LABS: AMYLASE 32 IU/L (1-118); CHLORIDE 104 mEq/L (99-109); POTASSIUM 4.2 mEq/L (3.7-5.4); SODIUM 141 mEq/L (136-147)
[2017-09-08 15:04] LABS: GLUCOSE 98 mg/dL (70-99)
[2017-09-08 15:07] LABS: SERUM ETHYL ALCOHOL < 10 mg/dL
[2017-09-08 15:08] LABS: CREATININE 0.9 mg/dL (0.6-1.3); GFR ESTIMATE (CALCULATED) > 59 mL/min/
[2017-09-08 15:09] LABS: UREA NITROGEN (BUN) 16 mg/dL (9-23)
[2017-09-08 15:11] LABS: LIPASE 28 U/L (1.0-51.0)
[2017-09-08 15:17] LABS: QUANTITATIVE HCG < 4.0 MIU/ML
[2017-09-08] MEDS ORDERED: PERCOCET 5/31 TABLET PO (18:25)
[2017-09-08] MEDS ORDERED: IBUPROFEN600 MG PO (18:25)
[2017-09-08] MEDS ORDERED: ZOFRAN ODT4 MG PO (18:45)
== END 2017-09-08 19:21 | disposition home or self-care (01) ==
LOC: TRA 14:24
PROVIDERS: Emergency Medicine
DX: S00.81XA Abrasion of other part of head, initial encounter (principal); S50.811A Abrasion of right forearm, initial encounter; S60.812A Abrasion of left wrist, initial encounter; S20.211A Contusion of right front wall of thorax, initial encounter; S40.022A Contusion of left upper arm, initial encounter; M54.2 Cervicalgia; M54.9 Dorsalgia, unspecified; V48.5XXA Car driver injured in noncollision transport accident in traffic accident, initial encounter; Y92.410 Unspecified street and highway as the place of occurrence of the external cause; I10 Essential (primary) hypertension; F17.210 Nicotine dependence, cigarettes, uncomplicated
CPT/HCPCS: 70450; 71045; 71260; 72125; 72129; 72132; 72170; 73090; 73110; 74177; 80048; 81003; 82150; 83690; 84702; 85025; 86850; 86900; 86901; G0480; J2405